=== PATIENT | male | born 1975 ===

== ENCOUNTER 2019-12-05 17:13 | Inpatient (IN) | payer OTHER ==
[2019-12-05] MEDS ORDERED: SODIUM CHLORIDE 0.9% 1000 ML IV SOLN IV ONE (20:16)
[2019-12-05] MEDS ORDERED: ACETAMINOPHEN 500 MG TAB PO ONE (20:35)
[2019-12-05] MEDS ORDERED: AZITHROMYCIN 500 MG in SODIUM CHLORIDE 0.9% 250ML 250 ML IV ONE (20:35)
[2019-12-05] MEDS ORDERED: cefTRIAXone/NS 2 GM/100 ML 2 GM/100 ML BAG IV ONE (20:35)
--- NOTE | 2019-12-05 20:39 | Emergency Department Report ---
HPI - General Chief Complaint: Dyspnea/Respdistress PUI?: Yes Time Seen by Provider: 12/05/19 20:15 - HPI HPI: Room 17 The patient is a 44-year-old male present with a chief complaint of shortness of breath. Patient states for 1 week he has felt short of breath. Patient states his symptoms worsened 4 days ago. Patient admits to an occasional cough that is nonproductive when he takes a deep breath in. Patient admits to subjective fever. Patient denies body aches. The patient states he thought he had the regular flu. The patient states he is not aware of having contact with a known COVID-19 patient ED Past Medical Hx - Past Medical History Previous Medical History?: No - Surgical History Past Surgical History?: No - Family History Family history: no significant - Social History Smoking Status: Never Smoker Substance Use Type: Alcohol (Occasional) ED Review of Systems ROS: Stated complaint: SOB Other details as noted in HPI Constitutional: fever Eyes: denies: eye pain ENT: denies: throat pain Respiratory: cough, shortness of breath Endocrine: no symptoms reported Gastrointestinal: denies: abdominal pain Genitourinary: denies: dysuria Musculoskeletal: denies: myalgia Neurological: denies: headache Physical Exam - Physical Exam Vital Signs: Vital Signs 12/05/19 12/05/19 18:39 20:14 Temperature 102.5 F H 102.7 F H Pulse Rate 114 H 107 H Respiratory 22 Rate Blood Pressure 150/80 Blood Pressure 123/82 [Right] O2 Sat by Pulse 93 90 Oximetry Physical Exam: GENERAL: The patient is well-developed well-nourished male lying on stretcher not appearing to be in acute distress. [] HEENT: Normocephalic. Atraumatic. Extraocular motions are intact. Patient has moist mucous membranes. NECK: Supple. Trachea midline CHEST/LUNGS: Diminished with crackles at right base. HEART/CARDIOVASCULAR: Regular. There is tachycardia. There is no gallop rub or murmur. ABDOMEN: Abdomen is soft, nontender. Patient has normal bowel sounds. There is no abdominal distention. SKIN: There is no rash. There is no edema. There is no diaphoresis. NEURO: The patient is awake, alert, and oriented. The patient is cooperative. The patient has normal speech MUSCULOSKELETAL: There is no evidence of acute injury. ED Course Vital Signs 12/05/19 12/05/19 18:39 20:14 Temperature 102.5 F H 102.7 F H Pulse Rate 114 H 107 H Respiratory 22 Rate Blood Pressure 150/80 Blood Pressure 123/82 [Right] O2 Sat by Pulse 93 90 Oximetry ED Medical Decision Making - Lab Data Result diagrams: 12/05/19 20:31 12/05/19 20:31 Laboratory Tests 12/05/19 12/05/19 12/05/19 20:31 20:31 20:31 WBC 14.2 H RBC 4.82 Hgb 13.8 Hct 41.4 MCV 86 MCH 29 MCHC 33 RDW 13.6 Plt Count 214 Seg Neutrophils % Stitcher Around D-Dimer Sodium 131 L Potassium 4.1 Chloride 96.1 L Carbon Dioxide 22 Anion Gap 17 BUN 6 L Creatinine 0.6 L Estimated GFR > 60 BUN/Creatinine Ratio 10 Glucose 126 H Lactic Acid 1.10 Calcium 9.4 Total Bilirubin 0.30 AST 74 H ALT 90 H Alkaline Phosphatase 83 Lactate Dehydrogenase C-Reactive Protein Total Protein 7.3 Albumin 3.4 L Albumin/Globulin Ratio 0.9 Urine Color Urine Turbidity Urine pH Ur Specific [place] Urine Protein Urine Glucose (UA) Urine Ketones Urine Blood Urine Nitrite Urine Bilirubin Urine Urobilinogen Ur Leukocyte Esterase Urine WBC (Auto) Urine RBC (Auto) Urine Mucus 12/05/19 12/05/19 12/05/19 20:31 20:31 20:58 WBC RBC Hgb Hct MCV MCH MCHC RDW Plt Count Seg Neutrophils % D-Dimer 295.04 H Sodium Potassium Chloride Carbon Dioxide Anion Gap BUN Creatinine Estimated GFR BUN/Creatinine Ratio Glucose 128 H Lactic Acid Calcium Total Bilirubin AST ALT Alkaline Phosphatase Lactate Dehydrogenase 408 H C-Reactive Protein 23.90 H Total Protein Albumin Albumin/Globulin Ratio Urine Color Yellow Urine Turbidity Clear Urine pH 8.0 H Ur Specific [place] 1.014 Urine Protein 30 mg/dl Urine Glucose (UA) Neg Urine Ketones Neg Urine Blood Neg Urine Nitrite Neg Urine Bilirubin Neg Urine Urobilinogen < 2.0 Ur Leukocyte Esterase Neg Urine WBC (Auto) 1.0 Urine RBC (Auto) 2.0 Urine Mucus Few - EKG Data -: EKG Interpreted by Nm EKG shows normal: sinus rhythm Rate: tachycardia (102 beats per) - EKG Data When compared to previous EKG there are: previous EKG unavailable Interpretation: nonspecific ST-T wave marimar (T wave inversion in lead III) - Radiology Data Radiology results: report reviewed (Chest x-ray), image reviewed (Chest x-ray) interpreted by me: Chest [id number] lower lobe infiltrates [facility] [address] [place] [address] XRay Report Signed Patient: NASIR SUERO MR#: [id number] : 1975 Acct:[id number] Age/Sex: 44 / M ADM Date: 12/05/19 Loc: 3A [id number]: KATERINE CHRISTIAN MD Ordering Physician: BRODIE OLVERA MD Date of Service: 12/05/19 Procedure(s): XR chest 1V ap Accession Number(s): [id number] cc: RBODIE OLVERA MD Fluoro Time In Minutes: CHEST 1 VIEW 9:05 PM INDICATION / CLINICAL INFORMATION: Shortness of breath and chest pain with deep inspiration for 5 days. Fever. COMPARISON: None available. FINDINGS: SUPPORT DEVICES: None. HEART / MEDIASTINUM: The heart size and pulmonary vasculature are normal. LUNGS / PLEURA: There is mild patchy groundglass opacity in the right lower lung, more prominent laterally. There may be mild disease in the left mid to lower lung laterally. No pleural effusion. No pneumothorax. ADDITIONAL FINDINGS: No significant additional findings. IMPRESSION: Mild patchy groundglass parenchymal disease, best seen in the right lower lung laterally. Atypical causes of pneumonia, including viral pneumonia, should be considered. Signer Name: Gulshan Flannery MD Signed: 12/05/2019 9:55 PM Workstation Name: [id number] Transcribed By: RT Dictated By: Gulshan Flannery MD Electronically Authenticated By: Gulshan Flannery MD Signed Date/Time: 12/05/192154 DD/ 53 TD/TT: - Differential Diagnosis COVID-19, pneumonia, bronchitis, Critical care attestation.: If time is entered above; I have spent that time in minutes in the direct care of this critically ill patient, excluding procedure time. ED Disposition Clinical Impression: Hypoxia, Bilateral pneumonia, Suspected COVID-19 virus infection Disposition: OP ADMIT IP TO THIS HOSP Is pt being admited?: Yes Does the pt Need Aspirin: Yes Condition: Fair Instructions: Bacterial Pneumonia (ED) Referrals: LISBETH BLAIR MD [Primary Care Provider] - 3-5 Days Time of Disposition: 21:16 (Hospitalist paged (Dr Christian))
[2019-12-05 21:01] LABS: Hematocrit 41.4 % (35.5-45.6); Hemoglobin 13.8 gm/dl (11.8-15.2); Mean Corpuscular HGB Conc 33 % (32-34); Mean Corpuscular Volume 86 fl (84-94); Platelet Count 214 K/mm3 (140-440); Red Blood Count 4.82 M/mm3 (3.65-5.03); Red Cell Distribution Width 13.6 % (13.2-15.2)
[2019-12-05 21:09] LABS: C-Reactive Protein 23.9 mg/dL (0.00-1.30)
[2019-12-05 21:09] LABS: Bilirubin,Urine NEG (Negative); Blood,Urine NEG (Negative); Color,Urine Yellow (Yellow); Mucus,Urine FEW /HPF; Urobilinogen,Urine < 2.0 mg/dL (<2.0)
[2019-12-05 21:10] LABS: Alanine Aminotransferase 90 units/L (7-56); Albumin 3.4 g/dL (3.9-5); BUN/Creatinine Ratio 10; Blood Urea Nitrogen 6 mg/dL (9-20); Calcium 9.4 mg/dL (8.4-10.2); Hemolysis Index 5
[2019-12-05] MEDS ORDERED: dexAMETHasone 4 MG/ML VIAL IV ONE (21:27)
[2019-12-05 21:32] LABS: Creatine Kinase MB < 1.0 ng/mL (0.0-4.0)
[2019-12-05 21:51] LABS: Basophils % (Manual) 0 % (0.0-1.8); Eosinophils % (Manual) 0 % (0.0-4.3); RBC Morphology Normal; Total Cells Counted 100
--- NOTE | 2019-12-05 22:00 | XRay Report ---
CHEST 1 VIEW 9:05 PM INDICATION / CLINICAL INFORMATION: Shortness of breath and chest pain with deep inspiration for 5 days. Fever. COMPARISON: None available. FINDINGS: SUPPORT DEVICES: None. HEART / MEDIASTINUM: The heart size and pulmonary vasculature are normal. LUNGS / PLEURA: There is mild patchy groundglass opacity in the right lower lung, more prominent late rally. There may be mild disease in the left mid to lower lung laterally. No pleural effusion. No pne umothorax. ADDITIONAL FINDINGS: No significant additional findings. IMPRESSION: Mild patchy groundglass parenchymal disease, best seen in the right lower lung laterally. Atypical causes of pneumonia, including viral pneumonia, should be considered. Signer Name: Gulshan Flannery MD Signed: 12/05/2019 9:55 PM Workstation Name: [id number]
[2019-12-05] MEDS ORDERED: dexAMETHasone 4 MG/ML VIAL ONE (22:16)
[2019-12-05] MEDS ORDERED: ONDANSETRON 4 MG/2 ML INJ IV PRN (23:08)
[2019-12-05] MEDS ORDERED: ACETAMINOPHEN 325 MG TAB PO PRN (23:08)
[2019-12-05] MEDS ORDERED: MAGNESIUM HYDROXIDE (MOM) ORAL LIQD UDC PO PRN (23:08)
--- NOTE | 2019-12-05 23:16 | History and Physical Report ---
History of Present Illness Date of examination: 12/05/19 Date of admission: 12/05/19 21:36 Chief complaint: Cough Shortness of breath Fever History of present illness: 44-year-old male with no significant past medical history presenting to the emergency room today complaining of shortness of breath which has been ongoing for about a week. Patient has also had a cough and generalized body aches and pain. Patient states his symptoms has worsened over the past few days. He has had some low-grade fever at home. He denies any chest pain, no nausea vomiting, no abdominal pain, no diarrhea. Patient denies any sick contacts and no recent travel. He denies any contact with anyone with COVID-19. Patient was slightly hypoxic upon arrival in the emergency room. Work-up in the emergency room reveals bilateral infiltrates in the lower lobes on chest x-ray. He was started on empiric IV antibiotics and also placed on isolation precautions to rule out COVID-19. Past History Past Medical History: No medical history Past Surgical History: No surgical history Social history: alcohol abuse (Drinks alcohol occasionally) Family history: no significant family history Medications and Allergies Allergies Allergy/AdvReac Type Severity Reaction Status Date / Time No Known Allergies Allergy Verified 12/05/19 23:18 Active Meds: Active Medications Acetaminophen (Tylenol) 650 mg PO Q4H PRN PRN Reason: Pain MILD(1-3)/Fever >100.5/WILSON Heparin Sodium (Porcine) (Heparin) 5,000 unit SUB-Q Q8HR IVÁN Ceftriaxone Sodium (Rocephin/Ns 2 Gm/100 Ml) 2 gm in 100 mls @ 200 mls/hr IV Q 24HR IVÁN; Protocol Azithromycin 500 mg/ Sodium (Chloride) 250 mls @ 250 mls/hr IV Q24HR IVÁN; Protocol Magnesium Hydroxide (Milk Of Magnesia) 30 ml PO Q4H PRN PRN Reason: Constipation Ondansetron HCl (Zofran) 4 mg IV Q8H PRN PRN Reason: Nausea And Vomiting Sodium Chloride (Sodium Chloride Flush Syringe 10 Ml) 10 ml IV BID IVÁN Sodium Chloride (Sodium Chloride Flush Syringe 10 Ml) 10 ml IV PRN PRN PRN Reason: LINE FLUSH Review of Systems Constitutional: fever, malaise, no chills Ears, nose, mouth and throat: no nasal congestion, no sore throat Cardiovascular: no chest pain, no palpitations Gastrointestinal: no abdominal pain, no nausea, no vomiting, no diarrhea Genitourinary Male: no dysuria, no hematuria, no flank pain Musculoskeletal: no neck pain, no low back pain Integumentary: no rash, no pruritis Neurological: no headaches, no confusion Exam - Constitutional Vitals: Temp Pulse Resp BP Pulse Ox 102.7 F H 100 H 20 123/82 97 12/05/19 20:14 12/05/19 20:45 12/05/19 20:56 12/05/19 20:45 12/05/19 20:45 General appearance: Present: no acute distress, well-nourished - EENT Eyes: Present: PERRL, EOM intact. Absent: scleral icterus ENT: hearing intact, clear oral mucosa, dentition normal - Neck Neck: Present: supple, normal ROM - Respiratory Respiratory effort: normal Respiratory: bilateral: diminished - Cardiovascular Rhythm: regular Heart Sounds: Present: S1 & S2. Absent: gallop, systolic murmur, diastolic m urmur, rub - Extremities Extremities: no ischemia, pulses intact, pulses symmetrical, No edema, Full ROM Peripheral Pulses: within normal limits - Abdominal General gastrointestinal: Present: soft, non-tender, non-distended, normal bowel sounds. Absent: mass - Integumentary Integumentary: Present: clear, warm, dry - Musculoskeletal Musculoskeletal: strength equal bilaterally - Psychiatric Psychiatric: appropriate mood/affect, intact judgment & insight, memory intact, cooperative - Neurologic Neurologic: CNII-XII intact, no focal deficits, moves all extremities HEART Score - HEART Score Troponin: Troponin T < 0.010 ng/mL (0.00-0.029) 12/05/19 20:31 Results - Labs CBC & Chem 7: 12/06/19 04:53 12/06/19 04:53 Labs: Abnormal lab results 12/05/19 12/05/19 12/05/19 Range/Units 20:31 20:31 20:31 WBC 14.2 H (4.5-11.0) K/mm3 Seg Neuts % (Manual) 89.0 H (40.0-70.0) % Lymphocytes % (Manual) 7.0 L (13.4-35.0) % Seg Neutrophils # Man 12.6 H (1.8-7.7) K/mm3 Lymphocytes # (Manual) 1.0 L (1.2-5.4) K/mm3 D-Dimer 295.04 H (0-234) ng/mlDDU Sodium 131 L (137-145) mmol/L Chloride 96.1 L (98-107) mmol/L BUN 6 L (9-20) mg/dL Creatinine 0.6 L (0.8-1.5) mg/dL Glucose 126 H (75-100) mg/dL AST 74 H (5-40) units/L ALT 90 H (7-56) units/L Lactate Dehydrogenase (91-180) units/L C-Reactive Protein (0.00-1.30) mg/dL Albumin 3.4 L (3.9-5) g/dL Urine pH (5.0-7.0) 12/05/19 12/05/19 Range/Units 20:31 20:58 WBC (4.5-11.0) K/mm3 Seg Neuts % (Manual) (40.0-70.0) % Lymphocytes % (Manual) (13.4-35.0) % Seg Neutrophils # Man (1.8-7.7) K/mm3 Lymphocytes # (Manual) (1.2-5.4) K/mm3 D-Dimer (0-234) ng/mlDDU Sodium (137-145) mmol/L Chloride (98-107) mmol/L BUN (9-20) mg/dL Creatinine (0.8-1.5) mg/dL Glucose 128 H (75-100) mg/dL AST (5-40) units/L ALT (7-56) units/L Lactate Dehydrogenase 408 H (91-180) units/L C-Reactive Protein 23.90 H (0.00-1.30) mg/dL Albumin (3.9-5) g/dL Urine pH 8.0 H (5.0-7.0) Assessment and Plan - Patient Problems (1) Bilateral pneumonia Current Visit: Yes Status: Acute Plan to address problem: Patient placed on empiric IV antibiotics. We also place patient on isolation precautions to rule out COVID-19. [address] consult to infectious disease for evaluation and recommendation. We will await results of COVID testing. (2) Hypoxia Current Visit: Yes Status: Acute Plan to address problem: Due to underlying pneumonia. We will keep O2 saturation greater or equal to 9 4%. (3) Suspected COVID-19 virus infection Current Visit: Yes Status: Acute Plan to address problem: Patient placed on IV steroid. She has also been placed on isolation precautions. We will await infectious disease input. (4) DVT prophylaxis Current Visit: Yes Status: Acute Plan to address problem: Patient placed on subcutaneous Lovenox. (5) Full code status Current Visit: Yes Status: Acute
[2019-12-06] MEDS: HEPARIN 5,000 UNIT/1 ML VIAL SUB-Q SCH ×3 (05:32→23:27)
[2019-12-06 05:34] LABS: Hemoglobin 13.7 gm/dl (11.8-15.2); Mean Corpuscular HGB Conc 33 % (32-34); Mean Corpuscular Volume 86 fl (84-94); Platelet Count 235 K/mm3 (140-440); Red Blood Count 4.77 M/mm3 (3.65-5.03); Red Cell Distribution Width 13.8 % (13.2-15.2)
[2019-12-06 06:03] LABS: BUN/Creatinine Ratio 13; Blood Urea Nitrogen 8 mg/dL (9-20); Calcium 9.7 mg/dL (8.4-10.2); Hemolysis Index 2
[2019-12-06] MEDS ORDERED: dexAMETHasone 4 MG/ML VIAL IV SCH (10:00)
[2019-12-06] MEDS ORDERED: AZITHROMYCIN 500 MG in SODIUM CHLORIDE 0.9% 250ML 250 ML IV SCH (10:00)
[2019-12-06] MEDS: DEXAMETHASONE 4 MG TAB PO SCH (10:18)
[2019-12-06] MEDS: cefTRIAXone/NS 2 GM/100 ML 2 GM/100 ML BAG IV SCH (10:18)
--- NOTE | 2019-12-06 10:43 | Event Note ---
Date: 12/06/19 COVID test pending. OK to continue steroids for now. If he develops worsening hypoxia, would add 5 days of Remdesivir.
[2019-12-06 13:15] LABS: Band Neutrophils # (Manual) 1.2 K/mm3; Basophils % (Manual) 0 % (0.0-1.8); Eosinophils % (Manual) 0 % (0.0-4.3); Platelet Estimate Consistent w Auto; RBC Morphology Normal; Total Cells Counted 100
--- NOTE | 2019-12-06 14:28 | Progress Note ---
Subjective Date of service: 12/06/19 Interval history: 44-year-old male with no significant past medical history presenting to the emergency room today complaining of shortness of breath which has been ongoing for about a week. Patient has also had a cough and generalized body aches and pain. Patient states his symptoms has worsened over the past few days. He has had some low-grade fever at home. He denies any chest pain, no nausea vomiting, no abdominal pain, no diarrhea. Patient denies any sick contacts and no recent travel. He denies any contact with anyone with COVID-19. Patient was slightly hypoxic upon arrival in the emergency room. Work-up in the emergency room reveals bilateral infiltrates in the lower lobes on chest x-ray. He was started on empiric IV antibiotics and also placed on isolation precautions to rule out COVID-19. 12/05 Patient is awake alert and oriented Complaints of shortness of breath with minimal effort Complaints of cough with deep breath but otherwise denies any significant cough He denies any fever or chills Lab results reviewed COVID-19 test results pending Assessment and plan Bilateral pneumonia Continue empiric IV antibiotics with Rocephin and azithromycin Chest x-ray reviewed Acute hypoxic respiratory failure Continue oxygen via nasal cannula O2 sat 97% on oxygen Suspected COVID-19 pneumonia Continue isolation precautions COVID-19 test results are pending All inflammatory markers are high Continue empiric Decadron Brief ID note reviewed Start on Remdesivir if cover test is positive Leukocytosis Continue IV antibiotics Monitor CBC Elevated LFTs Likely secondary to COVID 19 virus Hyponatremia Improved Hyperglycemia Likely secondary to IV Decadron Monitor Objective - Constitutional Vitals: Vital Signs - 12hr 12/06/19 12/06/19 02:49 05:04 Temperature 98.7 F 98.2 F Pulse Rate 71 Respiratory 16 16 Rate Blood Pressure 112/71 Blood Pressure 116/75 [Right] O2 Sat by Pulse 89 94 Oximetry General appearance: Present: no acute distress - EENT Eyes: PERRL, EOM intact ENT: hearing intact, clear oral mucosa - Neck Neck: supple, normal ROM - Respiratory Respiratory effort: normal Respiratory: bilateral: CTA - Cardiovascular Rhythm: regular Heart Sounds: Present: S1 & S2 Extremities: No edema - Gastrointestinal General gastrointestinal: Present: soft, non-tender Rectal Exam: deferred - Genitourinary Male genitourinary: deferred - Integumentary Integumentary: clear - Musculoskeletal Musculoskeletal: strength equal bilaterally - Neurologic Neurologic: no focal deficits - Psychiatric Psychiatric: appropriate mood/affect - Labs CBC & Chem 7: 12/06/19 04:53 12/06/19 04:53 Labs: Abnormal lab results 12/05/19 12/05/19 12/05/19 Range/Units 20:31 20:31 20:31 WBC 14.2 H (4.5-11.0) K/mm3 Seg Neuts % (Manual) 89.0 H (40.0-70.0) % Lymphocytes % (Manual) 7.0 L (13.4-35.0) % Seg Neutrophils # Man 12.6 H (1.8-7.7) K/mm3 Lymphocytes # (Manual) 1.0 L (1.2-5.4) K/mm3 D-Dimer 295.04 H (0-234) ng/mlDDU Sodium 131 L (137-145) mmol/L Chloride 96.1 L (98-107) mmol/L BUN 6 L (9-20) mg/dL Creatinine 0.6 L (0.8-1.5) mg/dL Glucose 126 H (75-100) mg/dL Ferritin (13.0-400.0) ng/mL AST 74 H (5-40) units/L ALT 90 H (7-56) units/L Lactate Dehydrogenase (91-180) units/L C-Reactive Protein (0.00-1.30) mg/dL Albumin 3.4 L (3.9-5) g/dL Urine pH (5.0-7.0) 12/05/19 12/05/19 12/05/19 Range/Units 20:31 20:31 20:58 WBC (4.5-11.0) K/mm3 Seg Neuts % (Manual) (40.0-70.0) % Lymphocytes % (Manual) (13.4-35.0) % Seg Neutrophils # Man (1.8-7.7) K/mm3 Lymphocytes # (Manual) (1.2-5.4) K/mm3 D-Dimer (0-234) ng/mlDDU Sodium (137-145) mmol/L Chloride (98-107) mmol/L BUN (9-20) mg/dL Creatinine (0.8-1.5) mg/dL Glucose 128 H (75-100) mg/dL Ferritin 887.8 H (13.0-400.0) ng/mL AST (5-40) units/L ALT (7-56) units/L Lactate Dehydrogenase 408 H (91-180) units/L C-Reactive Protein 23.90 H (0.00-1.30) mg/dL Albumin (3.9-5) g/dL Urine pH 8.0 H (5.0-7.0) 12/06/19 12/06/19 Range/Units 04:53 04:53 WBC 13.8 H (4.5-11.0) K/mm3 Seg Neuts % (Manual) 84.0 H (40.0-70.0) % Lymphocytes % (Manual) 5.0 L (13.4-35.0) % Seg Neutrophils # Man 11.6 H (1.8-7.7) K/mm3 Lymphocytes # (Manual) 0.7 L (1.2-5.4) K/mm3 D-Dimer (0-234) ng/mlDDU Sodium (137-145) mmol/L Chloride (98-107) mmol/L BUN 8 L (9-20) mg/dL Creatinine 0.6 L (0.8-1.5) mg/dL Glucose 160 H (75-100) mg/dL Ferritin (13.0-400.0) ng/mL AST (5-40) units/L ALT (7-56) units/L Lactate Dehydrogenase (91-180) units/L C-Reactive Protein (0.00-1.30) mg/dL Albumin (3.9-5) g/dL Urine pH (5.0-7.0) HEART Score - HEART Score Troponin: Troponin T < 0.010 ng/mL (0.00-0.029) 12/05/19 20:31
[2019-12-06] MEDS ORDERED: REMDESIVIR 200 MG in SODIUM CHLORIDE 0.9% 250ML 250 ML IV ONE (17:00)
[2019-12-06] MEDS: SODIUM CHLORIDE 0.9% 50 ML IV SCH ×2 (17:49→23:28)
[2019-12-07] MEDS: HEPARIN 5,000 UNIT/1 ML VIAL SUB-Q SCH ×3 (05:39→21:22)
[2019-12-07 06:33] LABS: Basophils % (Auto) 0.1 % (0.0-1.8); Hematocrit 40.9 % (35.5-45.6); Hemoglobin 13.3 gm/dl (11.8-15.2); Lymphocytes # (Auto) 0.8 K/mm3 (1.2-5.4); Lymphocytes % (Auto) 5.6 % (13.4-35.0); Mean Corpuscular HGB Conc 33 % (32-34); Mean Corpuscular Volume 86 fl (84-94); Monocytes # (Auto) 0.7 K/mm3 (0.0-0.8); Monocytes % (Auto) 4.9 % (0.0-7.3); Platelet Count 326 K/mm3 (140-440); Red Blood Count 4.78 M/mm3 (3.65-5.03)
[2019-12-07 06:41] LABS: Alanine Aminotransferase 135 units/L (7-56); Albumin 3.4 g/dL (3.9-5); BUN/Creatinine Ratio 26; Blood Urea Nitrogen 13 mg/dL (9-20); Calcium 9.8 mg/dL (8.4-10.2); Hemolysis Index 0
[2019-12-07] MEDS: DEXAMETHASONE 4 MG TAB PO SCH (09:33)
[2019-12-07] MEDS: cefTRIAXone/NS 2 GM/100 ML 2 GM/100 ML BAG IV SCH (09:33)
[2019-12-07] MEDS: AZITHROMYCIN 250 MG TAB PO SCH (09:33)
--- NOTE | 2019-12-07 14:27 | Progress Note ---
Subjective Date of service: 12/07/19 Interval history: 44-year-old male with no significant past medical history presenting to the emergency room today complaining of shortness of breath which has been ongoing for about a week. Patient has also had a cough and generalized body aches and pain. Patient states his symptoms has worsened over the past few days. He has had some low-grade fever at home. He denies any chest pain, no nausea vomiting, no abdominal pain, no diarrhea. Patient denies any sick contacts and no recent travel. He denies any contact with anyone with COVID-19. Patient was slightly hypoxic upon arrival in the emergency room. Work-up in the emergency room reveals bilateral infiltrates in the lower lobes on chest x-ray. He was started on empiric IV antibiotics and also placed on isolation precautions to rule out COVID-19. 12/05 Patient is awake alert and oriented Complaints of shortness of breath with minimal effort Complains of dry cough He denies any fever or chills Lab results reviewed COVID-19 test is positive 12/06 Patient is awake and alert He is moderately dyspneic by taking 1 or 2 steps and gets hypoxic with minimal effort He is on 6 L oxygen via nasal cannula Lab results reviewed Discussed with ID Dr. Keller over the phone Assessment and plan Bilateral pneumonia Chest x-ray reviewed Procalcitonin in the normal range Discontinue IV antibiotics Acute hypoxic respiratory failure Continue oxygen via nasal cannula Patient is on 6 L oxygen via nasal cannula He gets severely dyspneic and hypoxic with minimal effort Discussed with ID Dr. Keller over the phone We will administer 1 dose of Actemra at 8 mg/kg Will request pulmonary consult COVID-19 pneumonia Continue isolation precautions All inflammatory markers reviewed and are trending up Continue empiric Decadron Brief ID note reviewed Started on Remdesivir Leukocytosis Likely reactive Monitor CBC Elevated LFTs Likely secondary to COVID 19 virus Hyponatremia Improved Hyperglycemia Likely secondary to IV Decadron Monitor Objective - Constitutional Vitals: Vital Signs - 12hr 12/07/19 12/07/19 06:08 11:26 Temperature 98.0 F 97.7 F Pulse Rate 80 76 Respiratory 16 24 Rate Blood Pressure 119/75 121/77 O2 Sat by Pulse 92 96 Oximetry General appearance: Present: mild distress, well-nourished - EENT Eyes: PERRL, EOM intact ENT: hearing intact, clear oral mucosa - Neck Neck: supple, normal ROM, no masses or JVD - Respiratory Respiratory effort: other (Mild to moderate shortness of breath) Respiratory: bilateral: CTA - Cardiovascular Rhythm: regular Heart Sounds: Present: S1 & S2 Extremities: No edema - Gastrointestinal General gastrointestinal: Present: soft, non-tender Rectal Exam: deferred - Genitourinary Male genitourinary: deferred - Integumentary Integumentary: clear - Musculoskeletal Musculoskeletal: strength equal bilaterally - Neurologic Neurologic: no focal deficits - Labs CBC & Chem 7: 12/07/19 05:08 12/07/19 05:08 Labs: Abnormal lab results 12/05/19 12/07/19 12/07/19 Range/Units Unknown 05:08 05:08 WBC 14.7 H (4.5-11.0) K/mm3 Lymph % (Auto) 5.6 L (13.4-35.0) % Lymph # 0.8 L (1.2-5.4) K/mm3 Seg Neutrophils % 89.4 H (40.0-70.0) % Seg Neutrophils # 13.1 H (1.8-7.7) K/mm3 D-Dimer 373.63 H (0-234) ng/mlDDU Creatinine (0.8-1.5) mg/dL Glucose (75-100) mg/dL Ferritin (13.0-400.0) ng/mL AST (5-40) units/L ALT (7-56) units/L Lactate Dehydrogenase (91-180) units/L Albumin (3.9-5) g/dL Coronavirus (PCR) Positive A (Negative) 12/07/19 12/07/19 Range/Units 05:08 05:08 WBC (4.5-11.0) K/mm3 Lymph % (Auto) (13.4-35.0) % Lymph # (1.2-5.4) K/mm3 Seg Neutrophils % (40.0-70.0) % Seg Neutrophils # (1.8-7.7) K/mm3 D-Dimer (0-234) ng/mlDDU Creatinine 0.5 L (0.8-1.5) mg/dL Glucose 145 H (75-100) mg/dL Ferritin 1223.0 H (13.0-400.0) ng/mL AST 115 H (5-40) units/L ALT 135 H (7-56) units/L Lactate Dehydrogenase 452 H (91-180) units/L Albumin 3.4 L (3.9-5) g/dL Coronavirus (PCR) (Negative) HEART Score - HEART Score Troponin: Troponin T < 0.010 ng/mL (0.00-0.029) 12/05/19 20:31
--- NOTE | 2019-12-07 15:22 | Consultation ---
History of Present Illness Consult date: 12/07/19 Requesting physician: DANIELITO LARA Reason for consult: hypoxemia History of present illness: 44 y/o male admitted with acute respiratory failure secondary to COVID 19. Past History Past Medical History: No medical history Past Surgical History: No surgical history Social history: alcohol abuse (Drinks alcohol occasionally) Family history: no significant family history Medications and Allergies Allergies Allergy/AdvReac Type Severity Reaction Status Date / Time No Known Allergies Allergy Verified 12/05/19 23:18 Active Meds: Active Medications Acetaminophen (Tylenol) 650 mg PO Q4H PRN PRN Reason: Pain MILD(1-3)/Fever >100.5/[place] Azithromycin (Zithromax) 500 mg PO QDAY [facility] Stop: 12/09/19 10:01 Last Admin: 12/07/19 09:33 Dose: 500 mg Documented by: Dexamethasone (Decadron) 6 mg PO DAILY [facility] Last Admin: 12/07/19 09:33 Dose: 6 mg Documented by: Heparin Sodium (Porcine) (Heparin) 5,000 unit SUB-Q Q8HR [facility] Last Admin: 12/07/19 14:06 Dose: 5,000 unit Documented by: Ceftriaxone Sodium (Rocephin/Ns 2 Gm/100 Ml) 2 gm in 100 mls @ 200 mls/hr IV Q24HR [facility]; Protocol Last Admin: 12/07/19 09:33 Dose: 200 mls/hr Documented by: REMDESIVIR 100 mg/ Sodium (Chloride) 250 mls @ 500 mls/hr IV Q24HR@2100 IVÁN Stop: 12/10/19 21:29 Sodium Chloride (Nacl 0.9%) 50 mls @ 200 mls/hr IV 2100 [facility] Stop: 12/09/19 21:14 Last Admin: 12/06/19 23:28 Dose: Not Given Documented by: TOCILIZUMAB 700 mg/ Sodium (Chloride) 135 mls @ 120 mls/hr IV ONCE ONE Stop: 12/07/19 15:19 Magnesium Hydroxide (Milk Of Magnesia) 30 ml PO Q4H PRN PRN Reason: Constipation Ondansetron HCl (Zofran) 4 mg IV Q8H PRN PRN Reason: Nausea And Vomiting Sodium Chloride (Sodium Chloride Flush Syringe 10 Ml) 10 ml IV BID [facility] Last Admin: 12/07/19 09:36 Dose: 10 ml Documented by: Sodium Chloride (Sodium Chloride Flush Syringe 10 Ml) 10 ml IV PRN PRN PRN Reason: LINE FLUSH Physical Examination Vital signs: Vital Signs Temp Pulse BP Pulse Ox 102.5 F H 114 H 150/80 93 12/05/19 18:39 12/05/19 18:39 12/05/19 18:39 12/05/19 18:39 Patient not examined secondary to limited PPE in this COVID pandemic Results - Laboratory Findings CBC and BMP: 12/07/19 05:08 12/07/19 05:08 PT/INR, D-dimer PT 13.0 Sec. (12.2-14.9) 12/06/19 04:53 INR 1.00 (0.87-1.13) 12/06/19 04:53 D-Dimer 373.63 ng/mlDDU (0-234) H 12/07/19 05:08 Abnormal lab findings: Abnormal Labs 12/05/19 12/05/19 12/05/19 20:31 20:31 20:31 WBC 14.2 H Lymph % (Auto) Lymph # Seg Neutrophils % Seg Neuts % (Manual) 89.0 H Lymphocytes % (Manual) 7.0 L Seg Neutrophils # Seg Neutrophils # Man 12.6 H Lymphocytes # (Manual) 1.0 L D-Dimer 295.04 H Sodium 131 L Chloride 96.1 L BUN 6 L Creatinine 0.6 L Glucose 126 H Ferritin AST 74 H ALT 90 H Lactate Dehydrogenase C-Reactive Protein Albumin 3.4 L Urine pH Coronavirus (PCR) 12/05/19 12/05/19 12/05/19 20:31 20:31 20:58 WBC Lymph % (Auto) Lymph # Seg Neutrophils % Seg Neuts % (Manual) Lymphocytes % (Manual) Seg Neutrophils # Seg Neutrophils # Man Lymphocytes # (Manual) D-Dimer Sodium Chloride BUN Creatinine Glucose 128 H Ferritin 887.8 H AST ALT Lactate Dehydrogenase 408 H C-Reactive Protein 23.90 H Albumin Urine pH 8.0 H Coronavirus (PCR) 12/05/19 12/06/19 12/06/19 Unknown 04:53 04:53 WBC 13.8 H Lymph % (Auto) Lymph # Seg Neutrophils % Seg Neuts % (Manual) 84.0 H Lymphocytes % (Manual) 5.0 L Seg Neutrophils # Seg Neutrophils # Man 11.6 H Lymphocytes # (Manual) 0.7 L D-Dimer Sodium Chloride BUN 8 L Creatinine 0.6 L Glucose 160 H Ferritin AST ALT Lactate Dehydrogenase C-Reactive Protein Albumin Urine pH Coronavirus (PCR) Positive A 12/07/19 12/07/19 12/07/19 05:08 05:08 05:08 WBC 14.7 H Lymph % (Auto) 5.6 L Lymph # 0.8 L Seg Neutrophils % 89.4 H Seg Neuts % (Manual) Lymphocytes % (Manual) Seg Neutrophils # 13.1 H Seg Neutrophils # Man Lymphocytes # (Manual) D-Dimer 373.63 H Sodium Chloride BUN Creatinine Glucose Ferritin 1223.0 H AST ALT Lactate Dehydrogenase C-Reactive Protein Albumin Urine pH Coronavirus (PCR) 12/07/19 05:08 WBC Lymph % (Auto) Lymph # Seg Neutrophils % Seg Neuts % (Manual) Lymphocytes % (Manual) Seg Neutrophils # Seg Neutrophils # Man Lymphocytes # (Manual) D-Dimer Sodium Chloride BUN Creatinine 0.5 L Glucose 145 H Ferritin AST 115 H ALT 135 H Lactate Dehydrogenase 452 H C-Reactive Protein Albumin 3.4 L Urine pH Coronavirus (PCR) - Diagnostic Findings Chest x-ray: image reviewed (possible right mid lung lateral infiltrate with cardiomegaly. Otherwise clear) Assessment and Plan 44 y/o male with acute respiratory failure secondary to COVID 19 1. Prone patient as often as possible during the day and sleep prone at night 2. Continue IV steroids 3. Based on ID recs, should get Remdesivir given positive COVID state. Will defer to them on need of actemra as well 4. Wean FiO2 for sats >88%, currently on 2 liters NC 5. Please do not give any additional IVF's unless related to therapy like piggybacks for Remdesivir Will continue to follow along with you.
[2019-12-07] MEDS ORDERED: TOCILIZUMAB 400 MG in SODIUM CHLORIDE 0.9% 100 ML IV ONE (16:00)
[2019-12-07] MEDS ORDERED: TOCILIZUMAB 600 MG in SODIUM CHLORIDE 0.9% 100 ML IV ONE (17:00)
[2019-12-07] MEDS: REMDESIVIR 100 MG in SODIUM CHLORIDE 0.9% 250ML 250 ML IV SCH (21:22)
[2019-12-07] MEDS: SODIUM CHLORIDE 0.9% 50 ML IV SCH (21:22)
[2019-12-08] MEDS: HEPARIN 5,000 UNIT/1 ML VIAL SUB-Q SCH ×3 (05:27→22:54)
[2019-12-08] MEDS: cefTRIAXone/NS 2 GM/100 ML 2 GM/100 ML BAG IV SCH (11:24)
[2019-12-08] MEDS: AZITHROMYCIN 250 MG TAB PO SCH (11:25)
[2019-12-08] MEDS: DEXAMETHASONE 4 MG TAB PO SCH (12:27)
--- NOTE | 2019-12-08 13:01 | Progress Note ---
Subjective Date of service: 12/08/19 Interval history: 44-year-old male with no significant past medical history presenting to the emergency room today complaining of shortness of breath which has been ongoing for about a week. Patient has also had a cough and generalized body aches and pain. Patient states his symptoms has worsened over the past few days. He has had some low-grade fever at home. He denies any chest pain, no nausea vomiting, no abdominal pain, no diarrhea. Patient denies any sick contacts and no recent travel. He denies any contact with anyone with COVID-19. Patient was slightly hypoxic upon arrival in the emergency room. Work-up in the emergency room reveals bilateral infiltrates in the lower lobes on chest x-ray. He was started on empiric IV antibiotics and also placed on isolation precautions to rule out COVID-19. 12/05 Patient is awake alert and oriented Complaints of shortness of breath with minimal effort Complains of dry cough He denies any fever or chills Lab results reviewed COVID-19 test is positive 12/06 Patient is awake and alert He is moderately dyspneic by taking 1 or 2 steps and gets hypoxic with minimal effort He is on 6 L oxygen via nasal cannula Lab results reviewed Discussed with ID Dr. Keller over the phone 12/07 Patient is alert and oriented and feels better at rest but gets short of breath and hypoxic with mild effort He denies any cough, fever, chills, chest pain or abdominal pain He is now on 8 L oxygen via nasal cannula Lab results reviewed Assessment and plan Bilateral pneumonia Chest x-ray reviewed Procalcitonin in the normal range Discontinue IV antibiotics Acute hypoxic respiratory failure Continue oxygen via nasal cannula Patient is on 8 L oxygen via nasal cannula He gets severely dyspneic and hypoxic with minimal effort Discussed with ID Dr. Keller over the phone Status post 1 dose of Actemra at 8 mg/kg pulmonary consult note reviewed COVID-19 pneumonia Continue isolation precautions All inflammatory markers reviewed and are trending up Continue Decadron Brief ID note reviewed Started on Remdesivir Leukocytosis Likely reactive Monitor CBC Pro calcitonin is normal Elevated LFTs Likely secondary to COVID 19 virus Hyponatremia Improved Hyperglycemia Likely secondary to IV Decadron Monitor Objective - Constitutional Vitals: Vital Signs - 12hr 12/08/19 06:52 Temperature 99.0 F Pulse Rate 67 Respiratory 18 Rate Blood Pressure 137/86 O2 Sat by Pulse 93 Oximetry General appearance: Present: no acute distress, well-nourished - EENT Eyes: PERRL, EOM intact ENT: hearing intact, clear oral mucosa - Neck Neck: supple, normal ROM - Respiratory Respiratory effort: normal Respiratory: bilateral: CTA - Cardiovascular Rhythm: regular Heart Sounds: Present: S1 & S2 Extremities: No edema - Gastrointestinal General gastrointestinal: Present: soft, non-tender Rectal Exam: deferred - Genitourinary Male genitourinary: deferred - Integumentary Integumentary: clear - Musculoskeletal Musculoskeletal: strength equal bilaterally - Neurologic Neurologic: no focal deficits - Labs CBC & Chem 7: 12/07/19 05:08 12/07/19 05:08 HEART Score - HEART Score Troponin: Troponin T < 0.010 ng/mL (0.00-0.029) 12/05/19 20:31
--- NOTE | 2019-12-08 13:04 | Progress Note ---
Assessment and Plan 44 y/o male with acute respiratory failure secondary to COVID 19 1. Prone patient as often as possible during the day and sleep prone at night 2. Continue steroids, day of 3. On Remdesivir, got Actemra yesterday. 4. Wean FiO2 for sats >88%, currently on 2 liters NC 5. Please do not give any additional IVF's unless related to therapy like piggybacks for Remdesivir Will continue to follow along with you. Subjective Date of service: 12/08/19 Interval history: No acute events. Patient remains on 2 liters. Last sat documented at 93 in the chart under vitals. No RT notes. Objective Vital Signs - 12hr 12/08/19 06:52 Temperature 99.0 F Pulse Rate 67 Respiratory 18 Rate Blood Pressure 137/86 O2 Sat by Pulse 93 Oximetry CBC and BMP: 12/07/19 05:08 12/07/19 05:08 ABG, PT/INR, D-dimer: PT/INR, D-dimer PT 13.0 Sec. (12.2-14.9) 12/06/19 04:53 INR 1.00 (0.87-1.13) 12/06/19 04:53 D-Dimer 373.63 ng/mlDDU (0-234) H 12/07/19 05:08 Abnormal lab findings: Abnormal Labs 12/05/19 12/05/19 12/05/19 20:31 20:31 20:31 WBC 14.2 H Lymph % (Auto) Lymph # Seg Neutrophils % Seg Neuts % (Manual) 89.0 H Lymphocytes % (Manual) 7.0 L Seg Neutrophils # Seg Neutrophils # Man 12.6 H Lymphocytes # (Manual) 1.0 L D-Dimer 295.04 H Sodium 131 L Chloride 96.1 L BUN 6 L Creatinine 0.6 L Glucose 126 H Ferritin AST 74 H ALT 90 H Lactate Dehydrogenase C-Reactive Protein Albumin 3.4 L Urine pH Coronavirus (PCR) 12/05/19 12/05/19 12/05/19 20:31 20:31 20:58 WBC Lymph % (Auto) Lymph # Seg Neutrophils % Seg Neuts % (Manual) Lymphocytes % (Manual) Seg Neutrophils # Seg Neutrophils # Man Lymphocytes # (Manual) D-Dimer Sodium Chloride BUN Creatinine Glucose 128 H Ferritin 887.8 H AST ALT Lactate Dehydrogenase 408 H C-Reactive Protein 23.90 H Albumin Urine pH 8.0 H Coronavirus (PCR) 12/05/19 12/06/19 12/06/19 Unknown 04:53 04:53 WBC 13.8 H Lymph % (Auto) Lymph # Seg Neutrophils % Seg Neuts % (Manual) 84.0 H Lymphocytes % (Manual) 5.0 L Seg Neutrophils # Seg Neutrophils # Man 11.6 H Lymphocytes # (Manual) 0.7 L D-Dimer Sodium Chloride BUN 8 L Creatinine 0.6 L Glucose 160 H Ferritin AST ALT Lactate Dehydrogenase C-Reactive Protein Albumin Urine pH Coronavirus (PCR) Positive A 12/07/19 12/07/19 12/07/19 05:08 05:08 05:08 WBC 14.7 H Lymph % (Auto) 5.6 L Lymph # 0.8 L Seg Neutrophils % 89.4 H Seg Neuts % (Manual) Lymphocytes % (Manual) Seg Neutrophils # 13.1 H Seg Neutrophils # Man Lymphocytes # (Manual) D-Dimer 373.63 H Sodium Chloride BUN Creatinine Glucose Ferritin 1223.0 H AST ALT Lactate Dehydrogenase C-Reactive Protein Albumin Urine pH Coronavirus (PCR) 12/07/19 05:08 WBC Lymph % (Auto) Lymph # Seg Neutrophils % Seg Neuts % (Manual) Lymphocytes % (Manual) Seg Neutrophils # Seg Neutrophils # Man Lymphocytes # (Manual) D-Dimer Sodium Chloride BUN Creatinine 0.5 L Glucose 145 H Ferritin AST 115 H ALT 135 H Lactate Dehydrogenase 452 H C-Reactive Protein Albumin 3.4 L Urine pH Coronavirus (PCR)
[2019-12-08] MEDS: REMDESIVIR 100 MG in SODIUM CHLORIDE 0.9% 250ML 250 ML IV SCH (22:00)
[2019-12-09 06:27] LABS: Hematocrit 42.7 % (35.5-45.6); Hemoglobin 14.2 gm/dl (11.8-15.2); Mean Corpuscular HGB Conc 33 % (32-34); Mean Corpuscular Volume 86 fl (84-94); Platelet Count 428 K/mm3 (140-440); Red Blood Count 4.98 M/mm3 (3.65-5.03); Red Cell Distribution Width 14.1 % (13.2-15.2)
[2019-12-09] MEDS: HEPARIN 5,000 UNIT/1 ML VIAL SUB-Q SCH ×3 (06:30→21:50)
[2019-12-09 06:49] LABS: Alanine Aminotransferase 461 units/L (7-56); Albumin 3.1 g/dL (3.9-5); BUN/Creatinine Ratio 24; Blood Urea Nitrogen 12 mg/dL (9-20); Calcium 9.9 mg/dL (8.4-10.2); Hemolysis Index 12
[2019-12-09 09:01] LABS: Basophils % (Manual) 0 % (0.0-1.8); Eosinophils % (Manual) 0 % (0.0-4.3); Large Platelets Few; Platelet Estimate Consistent w Auto; RBC Morphology Normal; Total Cells Counted 100
[2019-12-09] MEDS: DEXAMETHASONE 4 MG TAB PO SCH (10:23)
--- NOTE | 2019-12-09 10:35 | Progress Note ---
Assessment and Plan Assessment and plan: 44-year-old male with no significant past medical history presenting to the emergency room today complaining of shortness of breath which has been ongoing for about a week. Patient has also had a cough and generalized body aches and pain. Patient states his symptoms has worsened over the past few days. He has had some low-grade fever at home. He denies any chest pain, no nausea vomiting, no abdominal pain, no diarrhea. Patient denies any sick contacts and no recent travel. He denies any contact with anyone with COVID-19. Patient was slightly hypoxic upon arrival in the emergency room. Work-up in the emergency room reveals bilateral infiltrates in the lower lobes on chest x-ray. He was started on empiric IV antibiotics and also placed on isolation precautions to rule out COVID-19. 12/05 Patient is awake alert and oriented Complaints of shortness of breath with minimal effort Complains of dry cough He denies any fever or chills Lab results reviewed COVID-19 test is positive 12/06 Patient is awake and alert He is moderately dyspneic by taking 1 or 2 steps and gets hypoxic with minimal effort He is on 6 L oxygen via nasal cannula Lab results reviewed Discussed with ID Dr. Keller over the phone 12/07 Patient is alert and oriented and feels better at rest but gets short of breath and hypoxic with mild effort He denies any cough, fever, chills, chest pain or abdominal pain He is now on 8 L oxygen via nasal cannula Lab results reviewed 12/08: Down to 6 L of oxygen via nasal cannula. Pulmonary input is noted. ID input is noted. Continue steroids today is day 3 out of 10. On Remdesivir, got Actemra 12/07/19. Continue to monitor inflammatory markers Assessment and plan Bilateral pneumonia Chest x-ray reviewed Procalcitonin in the normal range Discontinue IV antibiotics Acute hypoxic respiratory failure Continue oxygen via nasal cannula Patient initially was on 8 L oxygen via nasal cannula He gets severely dyspneic and hypoxic with minimal effort Discussed with TEDDY Keller over the phone Status post 1 dose of Actemra at 8 mg/kg pulmonary consult note reviewed COVID-19 pneumonia Continue isolation precautions All inflammatory markers reviewed and are trending up Continue Decadron Brief ID note reviewed Started on Remdesivir Leukocytosis Likely reactive Monitor CBC Pro calcitonin is normal Elevated LFTs Likely secondary to COVID 19 virus Hyponatremia Improved Hyperglycemia Likely secondary to IV Decadron Monitor History Interval history: Patient seen and examined sitting up at bedside. Interpretation according to the patient's request slowly through his friend so that he understands and is updated on his progress. Continues to have some shortness of breath although improving some. Hospitalist Physical - Physical exam Narrative exam: VITAL SIGNS: Reviewed. GENERAL: The patient appears normally developed, lethargic, vital signs as documented. HEAD: No signs of head trauma. EYES: Pupils are equal. Extraocular motions intact. EARS: Hearing grossly intact. MOUTH: Oropharynx is normal. NECK: No adenopathy, no JVD. CHEST: Chest with diminished breath sounds bilaterally. No wheezes, rales, or rhonchi. CARDIAC: Regular rate and rhythm. S1 and S2, without murmurs, gallops, or rubs. VASCULAR: No Edema. Peripheral pulses normal and equal in all extremities. ABDOMEN: Soft, non tender and non distended. No rebound or guarding, and no masses palpated. Bowel Sounds normal. MUSCULOSKELETAL: Good range of motion of all major joints. Extremities without clubbing, cyanosis or edema. NEUROLOGIC EXAM: Alert and oriented x 3 No focal sensory or strength deficits. Speech normal. Follows commands. PSYCHIATRIC: Mood normal. SKIN: detial exam as documented in skin assessment - Constitutional Vitals: Temp Pulse Resp BP Pulse Ox 97.9 F 64 18 131/85 91 12/09/19 05:49 12/09/19 05:49 12/09/19 05:49 12/09/19 05:49 12/09/19 05:49 General appearance: Present: no acute distress, well-nourished HEART Score - HEART Score Troponin: Troponin T < 0.010 ng/mL (0.00-0.029) 12/05/19 20:31 Results - Labs CBC & Chem 7: 12/10/19 04:38 12/10/19 04:38 Labs: Laboratory Last Values WBC 7.6 K/mm3 (4.5-11.0) 12/09/19 05:08 RBC 4.98 M/mm3 (3.65-5.03) 12/09/19 05:08 Hgb 14.2 gm/dl (11.8-15.2) 12/09/19 05:08 Hct 42.7 % (35.5-45.6) 12/09/19 05:08 MCV 86 fl (84-94) 12/09/19 05:08 MCH 29 pg (28-32) 12/09/19 05:08 MCHC 33 % (32-34) 12/09/19 05:08 RDW 14.1 % (13.2-15.2) 12/09/19 05:08 Plt Count 428 K/mm3 (140-440) 12/09/19 05:08 Lymph % (Auto) 5.6 % (13.4-35.0) L 12/07/19 05:08 [place] % (Auto) 4.9 % (0.0-7.3) 12/07/19 05:08 Eos % (Auto) 0.0 % (0.0-4.3) 12/07/19 05:08 Baso % (Auto) 0.1 % (0.0-1.8) 12/07/19 05:08 Lymph # 0.8 K/mm3 (1.2-5.4) L 12/07/19 05:08 [place] # 0.7 K/mm3 (0.0-0.8) 12/07/19 05:08 Eos # 0.0 K/mm3 (0.0-0.4) 12/07/19 05:08 Baso # 0.0 K/mm3 (0.0-0.1) 12/07/19 05:08 Add Manual Diff Complete 12/09/19 05:08 Total Counted 100 12/09/19 05:08 Seg Neutrophils % 89.4 % (40.0-70.0) H 12/07/19 05:08 Seg Neuts % (Manual) 71.0 % (40.0-70.0) H 12/09/19 05:08 Band Neutrophils % 0 % 12/09/19 05:08 Lymphocytes % (Manual) 20.0 % (13.4-35.0) 12/09/19 05:08 Reactive Lymphs % (Man) 0 % 12/09/19 05:08 Monocytes % (Manual) 9.0 % (0.0-7.3) H 12/09/19 05:08 Eosinophils % (Manual) 0 % (0.0-4.3) 12/09/19 05:08 Basophils % (Manual) 0 % (0.0-1.8) 12/09/19 05:08 Metamyelocytes % 0 % 12/09/19 05:08 Myelocytes % 0 % 12/09/19 05:08 Promyelocytes % 0 % 12/09/19 05:08 Blast Cells % 0 % 12/09/19 05:08 Nucleated RBC % Not Reportable 12/09/19 05:08 Seg Neutrophils # 13.1 K/mm3 (1.8-7.7) H 12/07/19 05:08 Seg Neutrophils # Man 5.4 K/mm3 (1.8-7.7) 12/09/19 05:08 Band Neutrophils # 0.0 K/mm3 12/09/19 05:08 Lymphocytes # (Manual) 1.5 K/mm3 (1.2-5.4) 12/09/19 05:08 Abs React Lymphs (Man) 0.0 K/mm3 12/09/19 05:08 Monocytes # (Manual) 0.7 K/mm3 (0.0-0.8) 12/09/19 05:08 Eosinophils # (Manual) 0.0 K/mm3 (0.0-0.4) 12/09/19 05:08 Basophils # (Manual) 0.0 K/mm3 (0.0-0.1) 12/09/19 05:08 Metamyelocytes # 0.0 K/mm3 12/09/19 05:08 Myelocytes # 0.0 K/mm3 12/09/19 05:08 Promyelocytes # 0.0 K/mm3 12/09/19 05:08 Blast Cells # 0.0 K/mm3 12/09/19 05:08 WBC Morphology Not Reportable 12/09/19 05:08 Hypersegmented Neuts Not Reportable 12/09/19 05:08 Hyposegmented Neuts Not Reportable 12/09/19 05:08 Hypogranular Neuts Not Reportable 12/09/19 05:08 Smudge Cells Not Reportable 12/09/19 05:08 Toxic Granulation Not Reportable 12/09/19 05:08 Toxic Vacuolation Not Reportable 12/09/19 05:08 Dohle Bodies Not Reportable 12/09/19 05:08 Pelger-Huet Anomaly Not Reportable 12/09/19 05:08 Aline Rods Not Reportable 12/09/19 05:08 Platelet Estimate Consistent w auto 12/09/19 05:08 Clumped Platelets Not Reportable 12/09/19 05:08 Plt Clumps, EDTA Not Reportable 12/09/19 05:08 Large Platelets Few 12/09/19 05:08 Giant Platelets Not Reportable 12/09/19 05:08 Platelet Satelliting Not Reportable 12/09/19 05:08 Plt Morphology Comment Not Reportable 12/09/19 05:08 RBC Morphology Normal 12/09/19 05:08 Dimorphic RBCs Not Reportable 12/09/19 05:08 Polychromasia Not Reportable 12/09/19 05:08 Hypochromasia Not Reportable 12/09/19 05:08 Poikilocytosis Not Reportable 12/09/19 05:08 Anisocytosis Not Reportable 12/09/19 05:08 Microcytosis Not Reportable 12/09/19 05:08 Macrocytosis Not Reportable 12/09/19 05:08 Spherocytes Not Reportable 12/09/19 05:08 Pappenheimer Bodies Not Reportable 12/09/19 05:08 Sickle Cells Not Reportable 12/09/19 05:08 Target Cells Not Reportable 12/09/19 05:08 Tear Drop Cells Not Reportable 12/09/19 05:08 Ovalocytes Not Reportable 12/09/19 05:08 Helmet Cells Not Reportable 12/09/19 05:08 [place] Bodies Not Reportable 12/09/19 05:08 [place] Rings Not Reportable 12/09/19 05:08 Richard Cells Not Reportable 12/09/19 05:08 Bite Cells Not Reportable 12/09/19 05:08 Crenated Cell Not Reportable 12/09/19 05:08 Elliptocytes Not Reportable 12/09/19 05:08 Acanthocytes (Spur) Not Reportable 12/09/19 05:08 Rouleaux Not Reportable 12/09/19 05:08 Hemoglobin C Crystals Not Reportable 12/09/19 05:08 Schistocytes Not Reportable 12/09/19 05:08 Malaria parasites Not Reportable 12/09/19 05:08 Jeffy Bodies Not Reportable 12/09/19 05:08 Hem Pathologist Commnt No 12/09/19 05:08 PT 13.0 Sec. (12.2-14.9) 12/06/19 04:53 INR 1.00 (0.87-1.13) 12/06/19 04:53 D-Dimer 481.48 ng/mlDDU (0-234) H 12/09/19 05:08 Sodium 138 mmol/L (137-145) 12/09/19 05:08 Potassium 4.7 mmol/L (3.6-5.0) 12/09/19 05:08 Chloride 102.3 mmol/L (98-107) 12/09/19 05:08 Carbon Dioxide 25 mmol/L (22-30) 12/09/19 05:08 Anion Gap 15 mmol/L 12/09/19 05:08 BUN 12 mg/dL (9-20) 12/09/19 05:08 Creatinine 0.5 mg/dL (0.8-1.5) L 12/09/19 05:08 Estimated GFR > 60 ml/min 12/09/19 05:08 BUN/Creatinine Ratio 24 % 12/09/19 05:08 Glucose 138 mg/dL (75-100) H 12/09/19 05:08 Lactic Acid 1.10 mmol/L (0.7-2.0) 12/06/19 01:18 Calcium 9.9 mg/dL (8.4-10.2) 12/09/19 05:08 Ferritin 999.3 ng/mL (13.0-400.0) H 12/09/19 05:08 Total Bilirubin 0.30 mg/dL (0.1-1.2) 12/09/19 05:08 AST 182 units/L (5-40) H 12/09/19 05:08 ALT 461 units/L (7-56) H 12/09/19 05:08 Alkaline Phosphatase 98 units/L (35-129) 12/09/19 05:08 Lactate Dehydrogenase 360 units/L (91-180) H 12/09/19 05:08 Total Creatine Kinase 116 units/L (55-170) 12/05/19 20:31 CK-MB (CK-2) < 1.0 ng/mL (0.0-4.0) 12/05/19 20:31 CK-MB (CK-2) Rel Index 0.8 (0-4) 12/05/19 20:31 Troponin T < 0.010 ng/mL (0.00-0.029) 12/05/19 20:31 C-Reactive Protein 2.60 mg/dL (0.00-1.30) H 12/09/19 05:08 Total Protein 6.7 g/dL (6.3-8.2) 12/09/19 05:08 Albumin 3.1 g/dL (3.9-5) L 12/09/19 05:08 Albumin/Globulin Ratio 0.9 % 12/09/19 05:08 Procalcitonin 0.22 ng/mL (<0.15) 12/05/19 20:31 Urine Color Yellow (Yellow) 12/05/19 20:58 Urine Turbidity Clear (Clear) 12/05/19 20:58 Urine pH 8.0 (5.0-7.0) H 12/05/19 20:58 Ur Specific [place] 1.014 (1.003-1.030) 12/05/19 20:58 Urine Protein 30 mg/dl mg/dL (Negative) 12/05/19 20:58 Urine Glucose (UA) Neg mg/dL (Negative) 12/05/19 20:58 Urine Ketones Neg mg/dL (Negative) 12/05/19 20:58 Urine Blood Neg (Negative) 12/05/19 20:58 Urine Nitrite Neg (Negative) 12/05/19 20:58 Urine Bilirubin Neg (Negative) 12/05/19 20:58 Urine Urobilinogen < 2.0 mg/dL (<2.0) 12/05/19 20:58 Ur Leukocyte Esterase Neg (Negative) 12/05/19 20:58 Urine WBC (Auto) 1.0 /HPF (0.0-6.0) 12/05/19 20:58 Urine RBC (Auto) 2.0 /HPF (0.0-6.0) 12/05/19 20:58 Urine Mucus Few /HPF 12/05/19 20:58 Coronavirus (PCR) Positive (Negative) A 12/05/19 Unknown Microbiology: Microbiology 12/05/19 20:35 Peripheral/Venous Blood Culture - Preliminary NO GROWTH AFTER 72 HOURS 12/05/19 20:31 Peripheral/Venous Blood Culture - Preliminary NO GROWTH AFTER 72 HOURS [place]/IV: Voiding Method Toilet IV Catheter Type [Left INT / Saline Lock Antecubital] Active Medications - Current Medications Current Medications: Generic Name Dose Route Start Last Admin Trade Name Freq PRN Reason Stop Dose Admin Acetaminophen 650 mg 12/05/19 23:08 Tylenol PO Q4H PRN Pain MILD(1-3)/Fever >100.5/[facility] Dexamethasone 6 mg 12/06/19 10:00 12/09/19 10:23 Decadron PO 6 mg DAILY IVÁN Administration Heparin Sodium (Porcine) 5,000 unit 12/06/19 06:00 12/09/19 06:30 Heparin SUB-Q 5,000 unit Q8HR IVÁN Administration REMDESIVIR 100 mg/ Sodium 250 mls @ 500 mls/hr 12/07/19 21:00 12/08/19 22:00 Chloride IV 12/10/19 21:29 500 mls/hr Q24HR@2100 IVÁN Administration Magnesium Hydroxide 30 ml 12/05/19 23:08 Milk Of Magnesia PO Q4H PRN Constipation Ondansetron HCl 4 mg 12/05/19 23:08 Zofran IV Q8H PRN Nausea And Vomiting Sodium Chloride 10 ml 12/06/19 10:00 12/09/19 10:24 Sodium Chloride Flush Syringe 10 Ml IV 10 ml BID IVÁN Administration Sodium Chloride 10 ml 12/05/19 23:08 Sodium Chloride Flush Syringe 10 Ml IV PRN PRN LINE FLUSH
--- NOTE | 2019-12-09 11:48 | Consultation ---
History of Present Illness - Reason for Consult Consult date: 12/09/19 covid Requesting physician: KATERINE CHRISTIAN - History of Present Illness 44-year-old male with no significant past medical history admitted on 12/05/2019 due to a week history of cough and shortness of breath associated with generalized malaise, body aches and fever.. He denies any chest pain, no nausea vomiting, no abdominal pain, no diarrhea. Patient denies any sick contacts and no recent travel. He denies any contact with anyone with COVID-19. On arrival, initial temperature 102.5, HR 114, O2 sat 93% on room air. Initial WBC 14.2. D-dimer 295 1 up to 481. Ferritin 887. LDH 408. CRP 23. AST 74, ALT 90. Chest x-ray showed bilateral infiltrates. Review of Systems: positive in bold print General: + fever, +chills, +malaise Cutaneous: rash, pruritus Head: headaches or injury Eyes: changes in vision, eye pain, double vision Ears: ear pain, ear discharge, ringing or hearing loss Nose: nose bleeding, stuffiness Mouth & throat: bleeding gums, horseness, no dental problems, or swollen glands Neck: no pain, node enlargement/lumps, tyroid enlargement or tenderness Respiratory: +SOB, +cough, +VAUGHN, wheezing, sputum, hemoptysis, pleuritic chest pain Cardiovascular: chest pain, leg edema, cyanosis, VAUGHN, orthopnea Musculoskeletal: edema, deformities, clubbing Gastrointestinal: nausea, vomiting, hematemesis, diarrhea, constipation, melena, bright red blood in stools, fecal incontinence, jaundice Genitourinary/Reproductive: frequent urination, dysuria, hematuria, incontinence Neurogical: confusion, seizures, headaches, weakness, paresthesias, loss of speech or vision; memory loss, vertigo, tremors, numbness Psychiatric: stable mood; excessive anxiety, sadness or moodiness Past History Past Medical History: No medical history Past Surgical History: No surgical history Social history: alcohol abuse (Drinks alcohol occasionally) Family history: no significant family history Medications and Allergies Allergies Allergy/AdvReac Type Severity Reaction Status Date / Time No Known Allergies Allergy Verified 12/05/19 23:18 Active Meds: Active Medications Acetaminophen (Tylenol) 650 mg PO Q4H PRN PRN Reason: Pain MILD(1-3)/Fever >100.5/WILSON Dexamethasone (Decadron) 6 mg PO DAILY [facility] Last Admin: 12/09/19 10:23 Dose: 6 mg Documented by: Heparin Sodium (Porcine) (Heparin) 5,000 unit SUB-Q Q8HR [facility] Last Admin: 12/09/19 06:30 Dose: 5,000 unit Documented by: REMDESIVIR 100 mg/ Sodium (Chloride) 250 mls @ 500 mls/hr IV Q24HR@2100 [facility] Stop: 12/10/19 21:29 Last Admin: 12/08/19 22:00 Dose: 500 mls/hr Documented by: Magnesium Hydroxide (Milk Of Magnesia) 30 ml PO Q4H PRN PRN Reason: Constipation Ondansetron HCl (Zofran) 4 mg IV Q8H PRN PRN Reason: Nausea And Vomiting Sodium Chloride (Sodium Chloride Flush Syringe 10 Ml) 10 ml IV BID [facility] Last Admin: 12/09/19 10:24 Dose: 10 ml Documented by: Sodium Chloride (Sodium Chloride Flush Syringe 10 Ml) 10 ml IV PRN PRN PRN Reason: LINE FLUSH Physical Examination - Physical Exam Narrative exam: Physical Exam: reviewed ED and hospitalist notes, limited due to conservation of PPE General appearance: limited due to conservation of PPE Eyes: limited due to conservation of PPE HENT: Atraumatic; limited due to conservation of PPE Lungs: limited due to conservation of PPE CV: limited due to conservation of PPE Abdomen: limited due to conservation of PPE Extremities: limited due to conservation of PPE Skin: limited due to conservation of PPE Psych: limited due to conservation of PPE Neuro: limited due to conservation of PPE - Constitutional Vitals: Vital Signs Temp Pulse Resp BP Pulse Ox 97.9 F 64 18 131/85 91 12/09/19 05:49 12/09/19 05:49 12/09/19 05:49 12/09/19 05:49 12/09/19 05:49 Temperature -Last 24 Hours Temperature 97.9 F Temperature 97.4 F Temperature 97.7 F Temperature 98.1 F Results - Labs CBC & Chem 7: 12/09/19 05:08 12/09/19 05:08 Labs: Abnormal lab results 12/09/19 12/09/19 12/09/19 Range/Units 05:08 05:08 05:08 Seg Neuts % (Manual) 71.0 H (40.0-70.0) % Monocytes % (Manual) 9.0 H (0.0-7.3) % D-Dimer 481.48 H (0-234) ng/mlDDU Creatinine 0.5 L (0.8-1.5) mg/dL Glucose 138 H (75-100) mg/dL Ferritin (13.0-400.0) ng/mL AST 182 H (5-40) units/L ALT 461 H (7-56) units/L Lactate Dehydrogenase 360 H (91-180) units/L C-Reactive Protein 2.60 H (0.00-1.30) mg/dL Albumin 3.1 L (3.9-5) g/dL 12/09/19 Range/Units 05:08 Seg Neuts % (Manual) (40.0-70.0) % Monocytes % (Manual) (0.0-7.3) % D-Dimer (0-234) ng/mlDDU Creatinine (0.8-1.5) mg/dL Glucose (75-100) mg/dL Ferritin 999.3 H (13.0-400.0) ng/mL AST (5-40) units/L ALT (7-56) units/L Lactate Dehydrogenase (91-180) units/L C-Reactive Protein (0.00-1.30) mg/dL Albumin (3.9-5) g/dL Assessment and Plan Cultures: Blood culture no growth today Assessment: 44-year-old male with no significant past medical history admitted on 12/05/2019 due to a week history of cough and shortness of breath associated with generalized malaise, body aches and fever: #Severe sepsis: likely due to bilateral pneumonia. #Severe COVID pneumonia: Patient presented with a week of symptoms, chest x-ray with diffuse bilateral infiltrates. Admission O2 sats 93% on room air. Inflammatory markers are elevated - D-dimer 295 1 up to 481. Ferritin 887. LDH 408. CRP 23. 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 #Acute hypoxemic respiratory failure: Currently on 2 L nasal cannula oxygen sats 91% #Elevated LFTs: from COVID Recommendations: Continue dexamethasone 6 mg IV/PO daily for 10 days Continue Remdesivir 200 mg IV q day x 1 day followed by 100 mg IV q day x 4 days S/p Tocilizumab 8 mg/kg IV x 1 on 12/07/2019 Obtain daily inflammatory markers - ferritin, Ddimer, CRP, LDH Continue prophylactic anticoagulation Obtain IL-6 level Will follow Betty Tavares MD Infectious Diseases [employer] [facility] M [phone] O [phone]
[2019-12-09] MEDS ORDERED: TOCILIZUMAB 400 MG in SODIUM CHLORIDE 0.9% 100 ML IV ONE (11:52)
--- NOTE | 2019-12-09 13:48 | Progress Note ---
Assessment and Plan 44 y/o male with acute respiratory failure secondary to COVID 19 1. Prone patient as often as possible during the day and sleep prone at night 2. Continue steroids, day of 3. On Remdesivir, got Actemra yesterday. 4. Wean FiO2 for sats >88%, currently on 6 liters NC. Concerning now for worsening infection. At this point, may consider going up on steroids if patient's oxygen requirement does not improve. 5. Please do not give any additional IVF's unless related to therapy like piggybacks for Remdesivir Will continue to follow along with you. Subjective Date of service: 12/09/19 Interval history: Oxygen requirement has gone up overnight to 6 liters. sats in the low 90's. BP normal slightly tachypnic. Objective Vital Signs - 12hr 12/09/19 05:49 Temperature 97.9 F Pulse Rate 64 Respiratory 18 Rate Blood Pressure 131/85 O2 Sat by Pulse 91 Oximetry CBC and BMP: 12/09/19 05:08 12/09/19 05:08 ABG, PT/INR, D-dimer: PT/INR, D-dimer PT 13.0 Sec. (12.2-14.9) 12/06/19 04:53 INR 1.00 (0.87-1.13) 12/06/19 04:53 D-Dimer 481.48 ng/mlDDU (0-234) H 12/09/19 05:08 Abnormal lab findings: Abnormal Labs 12/05/19 12/05/19 12/05/19 20:31 20:31 20:31 WBC 14.2 H Lymph % (Auto) Lymph # Seg Neutrophils % Seg Neuts % (Manual) 89.0 H Lymphocytes % (Manual) 7.0 L Monocytes % (Manual) Seg Neutrophils # Seg Neutrophils # Man 12.6 H Lymphocytes # (Manual) 1.0 L D-Dimer 295.04 H Sodium 131 L Chloride 96.1 L BUN 6 L Creatinine 0.6 L Glucose 126 H Ferritin AST 74 H ALT 90 H Lactate Dehydrogenase C-Reactive Protein Albumin 3.4 L Urine pH Coronavirus (PCR) 12/05/19 12/05/19 12/05/19 20:31 20:31 20:58 WBC Lymph % (Auto) Lymph # Seg Neutrophils % Seg Neuts % (Manual) Lymphocytes % (Manual) Monocytes % (Manual) Seg Neutrophils # Seg Neutrophils # Man Lymphocytes # (Manual) D-Dimer Sodium Chloride BUN Creatinine Glucose 128 H Ferritin 887.8 H AST ALT Lactate Dehydrogenase 408 H C-Reactive Protein 23.90 H Albumin Urine pH 8.0 H Coronavirus (PCR) 12/05/19 12/06/19 12/06/19 Unknown 04:53 04:53 WBC 13.8 H Lymph % (Auto) Lymph # Seg Neutrophils % Seg Neuts % (Manual) 84.0 H Lymphocytes % (Manual) 5.0 L Monocytes % (Manual) Seg Neutrophils # Seg Neutrophils # Man 11.6 H Lymphocytes # (Manual) 0.7 L D-Dimer Sodium Chloride BUN 8 L Creatinine 0.6 L Glucose 160 H Ferritin AST ALT Lactate Dehydrogenase C-Reactive Protein Albumin Urine pH Coronavirus (PCR) Positive A 12/07/19 12/07/19 12/07/19 05:08 05:08 05:08 WBC 14.7 H Lymph % (Auto) 5.6 L Lymph # 0.8 L Seg Neutrophils % 89.4 H Seg Neuts % (Manual) Lymphocytes % (Manual) Monocytes % (Manual) Seg Neutrophils # 13.1 H Seg Neutrophils # Man Lymphocytes # (Manual) D-Dimer 373.63 H Sodium Chloride BUN Creatinine Glucose Ferritin 1223.0 H AST ALT Lactate Dehydrogenase C-Reactive Protein Albumin Urine pH Coronavirus (PCR) 12/07/19 12/09/19 12/09/19 05:08 05:08 05:08 WBC Lymph % (Auto) Lymph # Seg Neutrophils % Seg Neuts % (Manual) 71.0 H Lymphocytes % (Manual) Monocytes % (Manual) 9.0 H Seg Neutrophils # Seg Neutrophils # Man Lymphocytes # (Manual) D-Dimer 481.48 H Sodium Chloride BUN Creatinine 0.5 L Glucose 145 H Ferritin AST 115 H ALT 135 H Lactate Dehydrogenase 452 H C-Reactive Protein Albumin 3.4 L Urine pH Coronavirus (PCR) 12/09/19 12/09/19 05:08 05:08 WBC Lymph % (Auto) Lymph # Seg Neutrophils % Seg Neuts % (Manual) Lymphocytes % (Manual) Monocytes % (Manual) Seg Neutrophils # Seg Neutrophils # Man Lymphocytes # (Manual) D-Dimer Sodium Chloride BUN Creatinine 0.5 L Glucose 138 H Ferritin 999.3 H AST 182 H ALT 461 H Lactate Dehydrogenase 360 H C-Reactive Protein 2.60 H Albumin 3.1 L Urine pH Coronavirus (PCR)
[2019-12-09] MEDS: REMDESIVIR 100 MG in SODIUM CHLORIDE 0.9% 250ML 250 ML IV SCH (21:50)
[2019-12-10 06:05] LABS: Hematocrit 44.7 % (35.5-45.6); Hemoglobin 15.1 gm/dl (11.8-15.2); Mean Corpuscular HGB Conc 34 % (32-34); Mean Corpuscular Volume 86 fl (84-94); Platelet Count 509 K/mm3 (140-440); Red Cell Distribution Width 13.9 % (13.2-15.2)
[2019-12-10] MEDS: HEPARIN 5,000 UNIT/1 ML VIAL SUB-Q SCH ×3 (06:06→21:13)
[2019-12-10 06:16] LABS: Alanine Aminotransferase 312 units/L (7-56); Albumin 3.2 g/dL (3.9-5); BUN/Creatinine Ratio 28; Blood Urea Nitrogen 14 mg/dL (9-20); Calcium 9.8 mg/dL (8.4-10.2); Hemolysis Index 3
--- NOTE | 2019-12-10 08:58 | Progress Note ---
Assessment and Plan Assessment and plan: 44-year-old male with no significant past medical history presenting to the emergency room today complaining of shortness of breath which has been ongoing for about a week. Patient has also had a cough and generalized body aches and pain. Patient states his symptoms has worsened over the past few days. He has had some low-grade fever at home. He denies any chest pain, no nausea vomiting, no abdominal pain, no diarrhea. Patient denies any sick contacts and no recent travel. He denies any contact with anyone with COVID-19. Patient was slightly hypoxic upon arrival in the emergency room. Work-up in the emergency room reveals bilateral infiltrates in the lower lobes on chest x-ray. He was started on empiric IV antibiotics and also placed on isolation precautions to rule out COVID-19. 12/05 Patient is awake alert and oriented Complaints of shortness of breath with minimal effort Complains of dry cough He denies any fever or chills Lab results reviewed COVID-19 test is positive 12/06 Patient is awake and alert He is moderately dyspneic by taking 1 or 2 steps and gets hypoxic with minimal effort He is on 6 L oxygen via nasal cannula Lab results reviewed Discussed with ID Dr. Keller over the phone 12/07 Patient is alert and oriented and feels better at rest but gets short of breath and hypoxic with mild effort He denies any cough, fever, chills, chest pain or abdominal pain He is now on 8 L oxygen via nasal cannula Lab results reviewed 12/08: Down to 6 L of oxygen via nasal cannula. Pulmonary input is noted. ID input is noted. Continue steroids today is day 3 out of 10. On Remdesivir, got Actemra 12/07/19. Continue to monitor inflammatory markers 12/09: Wean oxygen if patient is able to tolerate. Continue current therapy. Continue to wean oxygen aggressively. Assessment and plan Bilateral pneumonia Chest x-ray reviewed Procalcitonin in the normal range Discontinue IV antibiotics Acute hypoxic respiratory failure Continue oxygen via nasal cannula Patient initially was on 8 L oxygen via nasal cannula He gets severely dyspneic and hypoxic with minimal effort Discussed with ID Dr. Keller over the phone Status post 1 dose of Actemra at 8 mg/kg pulmonary consult note reviewed COVID-19 pneumonia Continue isolation precautions All inflammatory markers reviewed and are trending up Continue Decadron Brief ID note reviewed Started on Remdesivir Leukocytosis Likely reactive Monitor CBC Pro calcitonin is normal Elevated LFTs Likely secondary to COVID 19 virus Hyponatremia Improved Hyperglycemia Likely secondary to IV Decadron Monitor History Interval history: Patient seen and examined sitting up at bedside. changed oxygen to 5l as patient showing improvement Hospitalist Physical - Physical exam Narrative exam: VITAL SIGNS: Reviewed. GENERAL: The patient appears normally developed, vital signs as documented. HEAD: No signs of head trauma. EYES: Pupils are equal. Extraocular motions intact. EARS: Hearing grossly intact. MOUTH: Oropharynx is normal. NECK: No adenopathy, no JVD. CHEST: Chest with diminished breath sounds bilaterally. No wheezes, rales, or rhonchi. CARDIAC: Regular rate and rhythm. S1 and S2, without murmurs, gallops, or rubs. VASCULAR: No Edema. Peripheral pulses normal and equal in all extremities. ABDOMEN: Soft, non tender and non distended. No rebound or guarding, and no masses palpated. Bowel Sounds normal. MUSCULOSKELETAL: Good range of motion of all major joints. Extremities without clubbing, cyanosis or edema. NEUROLOGIC EXAM: Alert and oriented x 3 No focal sensory or strength deficits. Speech normal. Follows commands. PSYCHIATRIC: Mood normal. SKIN: detial exam as documented in skin assessment - Constitutional Vitals: Temp Pulse Resp BP Pulse Ox 97.8 F 54 L 18 113/67 97 12/10/19 05:10 12/10/19 05:10 12/10/19 05:10 12/10/19 05:10 12/10/19 05:10 General appearance: Present: no acute distress, well-nourished HEART Score - HEART Score Troponin: Troponin T < 0.010 ng/mL (0.00-0.029) 12/05/19 20:31 Results - Labs CBC & Chem 7: 12/10/19 04:38 12/10/19 04:38 Labs: Laboratory Last Values WBC 9.1 K/mm3 (4.5-11.0) 12/10/19 04:38 RBC 5.20 M/mm3 (3.65-5.03) H 12/10/19 04:38 Hgb 15.1 gm/dl (11.8-15.2) 12/10/19 04:38 Hct 44.7 % (35.5-45.6) 12/10/19 04:38 MCV 86 fl (84-94) 12/10/19 04:38 MCH 29 pg (28-32) 12/10/19 04:38 MCHC 34 % (32-34) 12/10/19 04:38 RDW 13.9 % (13.2-15.2) 12/10/19 04:38 Plt Count 509 K/mm3 (140-440) H 12/10/19 04:38 Lymph % (Auto) 5.6 % (13.4-35.0) L 12/07/19 05:08 Ocean % (Auto) 4.9 % (0.0-7.3) 12/07/19 05:08 Eos % (Auto) 0.0 % (0.0-4.3) 12/07/19 05:08 Baso % (Auto) 0.1 % (0.0-1.8) 12/07/19 05:08 Lymph # 0.8 K/mm3 (1.2-5.4) L 12/07/19 05:08 Ocean # 0.7 K/mm3 (0.0-0.8) 12/07/19 05:08 Eos # 0.0 K/mm3 (0.0-0.4) 12/07/19 05:08 Baso # 0.0 K/mm3 (0.0-0.1) 12/07/19 05:08 Add Manual Diff Complete 12/09/19 05:08 Total Counted 100 12/09/19 05:08 Seg Neutrophils % 89.4 % (40.0-70.0) H 12/07/19 05:08 Seg Neuts % (Manual) 71.0 % (40.0-70.0) H 12/09/19 05:08 Band Neutrophils % 0 % 12/09/19 05:08 Lymphocytes % (Manual) 20.0 % (13.4-35.0) 12/09/19 05:08 Reactive Lymphs % (Man) 0 % 12/09/19 05:08 Monocytes % (Manual) 9.0 % (0.0-7.3) H 12/09/19 05:08 Eosinophils % (Manual) 0 % (0.0-4.3) 12/09/19 05:08 Basophils % (Manual) 0 % (0.0-1.8) 12/09/19 05:08 Metamyelocytes % 0 % 12/09/19 05:08 Myelocytes % 0 % 12/09/19 05:08 Promyelocytes % 0 % 12/09/19 05:08 Blast Cells % 0 % 12/09/19 05:08 Nucleated RBC % Not Reportable 12/09/19 05:08 Seg Neutrophils # 13.1 K/mm3 (1.8-7.7) H 12/07/19 05:08 Seg Neutrophils # Man 5.4 K/mm3 (1.8-7.7) 12/09/19 05:08 Band Neutrophils # 0.0 K/mm3 12/09/19 05:08 Lymphocytes # (Manual) 1.5 K/mm3 (1.2-5.4) 12/09/19 05:08 Abs React Lymphs (Man) 0.0 K/mm3 12/09/19 05:08 Monocytes # (Manual) 0.7 K/mm3 (0.0-0.8) 12/09/19 05:08 Eosinophils # (Manual) 0.0 K/mm3 (0.0-0.4) 12/09/19 05:08 Basophils # (Manual) 0.0 K/mm3 (0.0-0.1) 12/09/19 05:08 Metamyelocytes # 0.0 K/mm3 12/09/19 05:08 Myelocytes # 0.0 K/mm3 12/09/19 05:08 Promyelocytes # 0.0 K/mm3 12/09/19 05:08 Blast Cells # 0.0 K/mm3 12/09/19 05:08 WBC Morphology Not Reportable 12/09/19 05:08 Hypersegmented Neuts Not Reportable 12/09/19 05:08 Hyposegmented Neuts Not Reportable 12/09/19 05:08 Hypogranular Neuts Not Reportable 12/09/19 05:08 Smudge Cells Not Reportable 12/09/19 05:08 Toxic Granulation Not Reportable 12/09/19 05:08 Toxic Vacuolation Not Reportable 12/09/19 05:08 Dohle Bodies Not Reportable 12/09/19 05:08 Pelger-Huet Anomaly Not Reportable 12/09/19 05:08 Aline Rods Not Reportable 12/09/19 05:08 Platelet Estimate Consistent w auto 12/09/19 05:08 Clumped Platelets Not Reportable 12/09/19 05:08 Plt Clumps, EDTA Not Reportable 12/09/19 05:08 Large Platelets Few 12/09/19 05:08 Giant Platelets Not Reportable 12/09/19 05:08 Platelet Satelliting Not Reportable 12/09/19 05:08 Plt Morphology Comment Not Reportable 12/09/19 05:08 RBC Morphology Normal 12/09/19 05:08 Dimorphic RBCs Not Reportable 12/09/19 05:08 Polychromasia Not Reportable 12/09/19 05:08 Hypochromasia Not Reportable 12/09/19 05:08 Poikilocytosis Not Reportable 12/09/19 05:08 Anisocytosis Not Reportable 12/09/19 05:08 Microcytosis Not Reportable 12/09/19 05:08 Macrocytosis Not Reportable 12/09/19 05:08 Spherocytes Not Reportable 12/09/19 05:08 Pappenheimer Bodies Not Reportable 12/09/19 05:08 Sickle Cells Not Reportable 12/09/19 05:08 Target Cells Not Reportable 12/09/19 05:08 Tear Drop Cells Not Reportable 12/09/19 05:08 Ovalocytes Not Reportable 12/09/19 05:08 Helmet Cells Not Reportable 12/09/19 05:08 Steen-Fairchilds Bodies Not Reportable 12/09/19 05:08 Triplett Rings Not Reportable 12/09/19 05:08 Sarona Cells Not Reportable 12/09/19 05:08 Bite Cells Not Reportable 12/09/19 05:08 Crenated Cell Not Reportable 12/09/19 05:08 Elliptocytes Not Reportable 12/09/19 05:08 Acanthocytes (Spur) Not Reportable 12/09/19 05:08 Rouleaux Not Reportable 12/09/19 05:08 Hemoglobin C Crystals Not Reportable 12/09/19 05:08 Schistocytes Not Reportable 12/09/19 05:08 Malaria parasites Not Reportable 12/09/19 05:08 Jeffy Bodies Not Reportable 12/09/19 05:08 Hem Pathologist Commnt No 12/09/19 05:08 PT 13.0 Sec. (12.2-14.9) 12/06/19 04:53 INR 1.00 (0.87-1.13) 12/06/19 04:53 D-Dimer 481.48 ng/mlDDU (0-234) H 12/09/19 05:08 Sodium 136 mmol/L (137-145) L 12/10/19 04:38 Potassium 4.1 mmol/L (3.6-5.0) 12/10/19 04:38 Chloride 101.1 mmol/L (98-107) 12/10/19 04:38 Carbon Dioxide 24 mmol/L (22-30) 12/10/19 04:38 Anion Gap 15 mmol/L 12/10/19 04:38 BUN 14 mg/dL (9-20) 12/10/19 04:38 Creatinine 0.5 mg/dL (0.8-1.5) L 12/10/19 04:38 Estimated GFR > 60 ml/min 12/10/19 04:38 BUN/Creatinine Ratio 28 % 12/10/19 04:38 Glucose 127 mg/dL (75-100) H 12/10/19 04:38 Lactic Acid 1.10 mmol/L (0.7-2.0) 12/06/19 01:18 Calcium 9.8 mg/dL (8.4-10.2) 12/10/19 04:38 Ferritin 999.3 ng/mL (13.0-400.0) H 12/09/19 05:08 Total Bilirubin 0.30 mg/dL (0.1-1.2) 12/10/19 04:38 AST 52 units/L (5-40) H 12/10/19 04:38 ALT 312 units/L (7-56) H 12/10/19 04:38 Alkaline Phosphatase 90 units/L (35-129) 12/10/19 04:38 Lactate Dehydrogenase 360 units/L (91-180) H 12/09/19 05:08 Total Creatine Kinase 116 units/L (55-170) 12/05/19 20:31 CK-MB (CK-2) < 1.0 ng/mL (0.0-4.0) 12/05/19 20:31 CK-MB (CK-2) Rel Index 0.8 (0-4) 12/05/19 20:31 Troponin T < 0.010 ng/mL (0.00-0.029) 12/05/19 20:31 C-Reactive Protein 2.60 mg/dL (0.00-1.30) H 12/09/19 05:08 Total Protein 7.0 g/dL (6.3-8.2) 12/10/19 04:38 Albumin 3.2 g/dL (3.9-5) L 12/10/19 04:38 Albumin/Globulin Ratio 0.8 % 12/10/19 04:38 Procalcitonin 0.22 ng/mL (<0.15) 12/05/19 20:31 Urine Color Yellow (Yellow) 12/05/19 20:58 Urine Turbidity Clear (Clear) 12/05/19 20:58 Urine pH 8.0 (5.0-7.0) H 12/05/19 20:58 Ur Specific [place] 1.014 (1.003-1.030) 12/05/19 20:58 Urine Protein 30 mg/dl mg/dL (Negative) 12/05/19 20:58 Urine Glucose (UA) Neg mg/dL (Negative) 12/05/19 20:58 Urine Ketones Neg mg/dL (Negative) 12/05/19 20:58 Urine Blood Neg (Negative) 12/05/19 20:58 Urine Nitrite Neg (Negative) 12/05/19 20:58 Urine Bilirubin Neg (Negative) 12/05/19 20:58 Urine Urobilinogen < 2.0 mg/dL (<2.0) 12/05/19 20:58 Ur Leukocyte Esterase Neg (Negative) 12/05/19 20:58 Urine WBC (Auto) 1.0 /HPF (0.0-6.0) 12/05/19 20:58 Urine RBC (Auto) 2.0 /HPF (0.0-6.0) 12/05/19 20:58 Urine Mucus Few /HPF 12/05/19 20:58 Coronavirus (PCR) Positive (Negative) A 12/05/19 Unknown Microbiology: Microbiology 12/05/19 20:35 Peripheral/Venous Blood Culture - Preliminary NO GROWTH AFTER 4 DAYS 12/05/19 20:31 Peripheral/Venous Blood Culture - Preliminary NO GROWTH AFTER 4 DAYS [place]/IV: Voiding Method Toilet IV Catheter Type [Left INT / Saline Lock Antecubital] Active Medications - Current Medications Current Medications: Generic Name Dose Route Start Last Admin Trade Name Freq PRN Reason Stop Dose Admin Acetaminophen 650 mg 12/05/19 23:08 Tylenol PO Q4H PRN Pain MILD(1-3)/Fever >100.5/WILSON Dexamethasone 6 mg 12/06/19 10:00 12/09/19 10:23 Decadron PO 12/15/19 10:01 6 mg DAILY IVÁN Administration Heparin Sodium (Porcine) 5,000 unit 12/06/19 06:00 12/10/19 06:06 Heparin SUB-Q 5,000 unit Q8HR IVÁN Administration REMDESIVIR 100 mg/ Sodium 250 mls @ 500 mls/hr 12/07/19 21:00 12/09/19 21:50 Chloride IV 12/10/19 21:29 500 mls/hr Q24HR@2100 IVÁN Administration Magnesium Hydroxide 30 ml 12/05/19 23:08 Milk Of Magnesia PO Q4H PRN Constipation Ondansetron HCl 4 mg 12/05/19 23:08 Zofran IV Q8H PRN Nausea And Vomiting Sodium Chloride 10 ml 12/06/19 10:00 12/09/19 21:54 Sodium Chloride Flush Syringe 10 Ml IV 10 ml BID IVNÁ Administration Sodium Chloride 10 ml 12/05/19 23:08 Sodium Chloride Flush Syringe 10 Ml IV PRN PRN LINE FLUSH
[2019-12-10] MEDS: DEXAMETHASONE 4 MG TAB PO SCH (09:23)
--- NOTE | 2019-12-10 09:59 | Progress Note ---
Assessment and Plan 44 y/o male with acute respiratory failure secondary to COVID 19 1. Prone patient as often as possible during the day and sleep prone at night 2. Continue steroids, day of , will hold on increasing for now. Will ask RT to wean oxygen more aggressively. 3. On Remdesivir, got Actemra 2 days ago. 4. Wean FiO2 for sats >88%, currently on 6 liters NC. new order placed to RT. 5. Please do not give any additional IVF's unless related to therapy like piggybacks for Remdesivir 6. No lasix today. Will reassess tomorrow. Will continue to follow along with you. Subjective Date of service: 12/10/19 Interval history: Sats documented are much better. As of last night still on 6 liters, no new RT notes yet. per nursing note still on 6 liters. Objective Vital Signs - 12hr 12/09/19 12/09/19 12/10/19 22:00 22:08 05:10 Temperature 98.3 F 97.8 F Pulse Rate 55 L 54 L Respiratory 20 20 18 Rate Blood Pressure 132/82 113/67 O2 Sat by Pulse 96 99 97 Oximetry CBC and BMP: 12/10/19 04:38 12/10/19 04:38 ABG, PT/INR, D-dimer: PT/INR, D-dimer PT 13.0 Sec. (12.2-14.9) 12/06/19 04:53 INR 1.00 (0.87-1.13) 12/06/19 04:53 D-Dimer 481.48 ng/mlDDU (0-234) H 12/09/19 05:08 Abnormal lab findings: Abnormal Labs 12/05/19 12/05/19 12/05/19 20:31 20:31 20:31 WBC 14.2 H RBC Plt Count Lymph % (Auto) Lymph # Seg Neutrophils % Seg Neuts % (Manual) 89.0 H Lymphocytes % (Manual) 7.0 L Monocytes % (Manual) Seg Neutrophils # Seg Neutrophils # Man 12.6 H Lymphocytes # (Manual) 1.0 L D-Dimer 295.04 H Sodium 131 L Chloride 96.1 L BUN 6 L Creatinine 0.6 L Glucose 126 H Ferritin AST 74 H ALT 90 H Lactate Dehydrogenase C-Reactive Protein Albumin 3.4 L Urine pH Coronavirus (PCR) 12/05/19 12/05/19 12/05/19 20:31 20:31 20:58 WBC RBC Plt Count Lymph % (Auto) Lymph # Seg Neutrophils % Seg Neuts % (Manual) Lymphocytes % (Manual) Monocytes % (Manual) Seg Neutrophils # Seg Neutrophils # Man Lymphocytes # (Manual) D-Dimer Sodium Chloride BUN Creatinine Glucose 128 H Ferritin 887.8 H AST ALT Lactate Dehydrogenase 408 H C-Reactive Protein 23.90 H Albumin Urine pH 8.0 H Coronavirus (PCR) 12/05/19 12/06/19 12/06/19 Unknown 04:53 04:53 WBC 13.8 H RBC Plt Count Lymph % (Auto) Lymph # Seg Neutrophils % Seg Neuts % (Manual) 84.0 H Lymphocytes % (Manual) 5.0 L Monocytes % (Manual) Seg Neutrophils # Seg Neutrophils # Man 11.6 H Lymphocytes # (Manual) 0.7 L D-Dimer Sodium Chloride BUN 8 L Creatinine 0.6 L Glucose 160 H Ferritin AST ALT Lactate Dehydrogenase C-Reactive Protein Albumin Urine pH Coronavirus (PCR) Positive A 12/07/19 12/07/19 12/07/19 05:08 05:08 05:08 WBC 14.7 H RBC Plt Count Lymph % (Auto) 5.6 L Lymph # 0.8 L Seg Neutrophils % 89.4 H Seg Neuts % (Manual) Lymphocytes % (Manual) Monocytes % (Manual) Seg Neutrophils # 13.1 H Seg Neutrophils # Man Lymphocytes # (Manual) D-Dimer 373.63 H Sodium Chloride BUN Creatinine Glucose Ferritin 1223.0 H AST ALT Lactate Dehydrogenase C-Reactive Protein Albumin Urine pH Coronavirus (PCR) 12/07/19 12/09/19 12/09/19 05:08 05:08 05:08 WBC RBC Plt Count Lymph % (Auto) Lymph # Seg Neutrophils % Seg Neuts % (Manual) 71.0 H Lymphocytes % (Manual) Monocytes % (Manual) 9.0 H Seg Neutrophils # Seg Neutrophils # Man Lymphocytes # (Manual) D-Dimer 481.48 H Sodium Chloride BUN Creatinine 0.5 L Glucose 145 H Ferritin AST 115 H ALT 135 H Lactate Dehydrogenase 452 H C-Reactive Protein Albumin 3.4 L Urine pH Coronavirus (PCR) 12/09/19 12/09/19 12/10/19 05:08 05:08 04:38 WBC RBC 5.20 H Plt Count 509 H Lymph % (Auto) Lymph # Seg Neutrophils % Seg Neuts % (Manual) Lymphocytes % (Manual) Monocytes % (Manual) Seg Neutrophils # Seg Neutrophils # Man Lymphocytes # (Manual) D-Dimer Sodium Chloride BUN Creatinine 0.5 L Glucose 138 H Ferritin 999.3 H AST 182 H ALT 461 H Lactate Dehydrogenase 360 H C-Reactive Protein 2.60 H Albumin 3.1 L Urine pH Coronavirus (PCR) 12/10/19 04:38 WBC RBC Plt Count Lymph % (Auto) Lymph # Seg Neutrophils % Seg Neuts % (Manual) Lymphocytes % (Manual) Monocytes % (Manual) Seg Neutrophils # Seg Neutrophils # Man Lymphocytes # (Manual) D-Dimer Sodium 136 L Chloride BUN Creatinine 0.5 L Glucose 127 H Ferritin AST 52 H ALT 312 H Lactate Dehydrogenase C-Reactive Protein Albumin 3.2 L Urine pH Coronavirus (PCR)
[2019-12-10] MEDS: REMDESIVIR 100 MG in SODIUM CHLORIDE 0.9% 250ML 250 ML IV SCH (21:13)
[2019-12-11] MEDS: HEPARIN 5,000 UNIT/1 ML VIAL SUB-Q SCH ×3 (06:19→21:45)
--- NOTE | 2019-12-11 08:09 | Progress Note ---
Assessment and Plan 44 y/o male with acute respiratory failure secondary to COVID 19 1. Prone patient as often as possible during the day and sleep prone at night. No documentation of this. 2. Continue steroids, day of , will hold on increasing for now. Will ask RT to wean oxygen more aggressively. Now down to 4 with a sat of 96. 3. Finished Remdesivir, and Actemra 4. Wean FiO2 for sats >88%, currently on 4 liters NC. new order placed to RT. 5. Please do not give any additional IVF's unless related to therapy like piggybacks for Remdesivir 6. No lasix today. Will reassess tomorrow. Will continue to follow along with you. Subjective Date of service: 12/11/19 Interval history: No acute events. Down to 4 liters with good sats as of last night. Remdesivir finished yesterday. Objective Vital Signs - 12hr 12/10/19 12/10/19 12/11/19 21:56 23:25 04:14 Temperature 99.6 F 97.7 F Pulse Rate 56 L 52 L Respiratory 20 18 Rate Blood Pressure 131/80 108/70 O2 Sat by Pulse 96 96 97 Oximetry CBC and BMP: 12/10/19 04:38 12/10/19 04:38 ABG, PT/INR, D-dimer: PT/INR, D-dimer PT 13.0 Sec. (12.2-14.9) 12/06/19 04:53 INR 1.00 (0.87-1.13) 12/06/19 04:53 D-Dimer 481.48 ng/mlDDU (0-234) H 12/09/19 05:08 Abnormal lab findings: Abnormal Labs 12/05/19 12/05/19 12/05/19 20:31 20:31 20:31 WBC 14.2 H RBC Plt Count Lymph % (Auto) Lymph # Seg Neutrophils % Seg Neuts % (Manual) 89.0 H Lymphocytes % (Manual) 7.0 L Monocytes % (Manual) Seg Neutrophils # Seg Neutrophils # Man 12.6 H Lymphocytes # (Manual) 1.0 L D-Dimer 295.04 H Sodium 131 L Chloride 96.1 L BUN 6 L Creatinine 0.6 L Glucose 126 H Ferritin AST 74 H ALT 90 H Lactate Dehydrogenase C-Reactive Protein Albumin 3.4 L Urine pH Coronavirus (PCR) 12/05/19 12/05/19 12/05/19 20:31 20:31 20:58 WBC RBC Plt Count Lymph % (Auto) Lymph # Seg Neutrophils % Seg Neuts % (Manual) Lymphocytes % (Manual) Monocytes % (Manual) Seg Neutrophils # Seg Neutrophils # Man Lymphocytes # (Manual) D-Dimer Sodium Chloride BUN Creatinine Glucose 128 H Ferritin 887.8 H AST ALT Lactate Dehydrogenase 408 H C-Reactive Protein 23.90 H Albumin Urine pH 8.0 H Coronavirus (PCR) 12/05/19 12/06/19 12/06/19 Unknown 04:53 04:53 WBC 13.8 H RBC Plt Count Lymph % (Auto) Lymph # Seg Neutrophils % Seg Neuts % (Manual) 84.0 H Lymphocytes % (Manual) 5.0 L Monocytes % (Manual) Seg Neutrophils # Seg Neutrophils # Man 11.6 H Lymphocytes # (Manual) 0.7 L D-Dimer Sodium Chloride BUN 8 L Creatinine 0.6 L Glucose 160 H Ferritin AST ALT Lactate Dehydrogenase C-Reactive Protein Albumin Urine pH Coronavirus (PCR) Positive A 12/07/19 12/07/19 12/07/19 05:08 05:08 05:08 WBC 14.7 H RBC Plt Count Lymph % (Auto) 5.6 L Lymph # 0.8 L Seg Neutrophils % 89.4 H Seg Neuts % (Manual) Lymphocytes % (Manual) Monocytes % (Manual) Seg Neutrophils # 13.1 H Seg Neutrophils # Man Lymphocytes # (Manual) D-Dimer 373.63 H Sodium Chloride BUN Creatinine Glucose Ferritin 1223.0 H AST ALT Lactate Dehydrogenase C-Reactive Protein Albumin Urine pH Coronavirus (PCR) 12/07/19 12/09/19 12/09/19 05:08 05:08 05:08 WBC RBC Plt Count Lymph % (Auto) Lymph # Seg Neutrophils % Seg Neuts % (Manual) 71.0 H Lymphocytes % (Manual) Monocytes % (Manual) 9.0 H Seg Neutrophils # Seg Neutrophils # Man Lymphocytes # (Manual) D-Dimer 481.48 H Sodium Chloride BUN Creatinine 0.5 L Glucose 145 H Ferritin AST 115 H ALT 135 H Lactate Dehydrogenase 452 H C-Reactive Protein Albumin 3.4 L Urine pH Coronavirus (PCR) 12/09/19 12/09/19 12/10/19 05:08 05:08 04:38 WBC RBC 5.20 H Plt Count 509 H Lymph % (Auto) Lymph # Seg Neutrophils % Seg Neuts % (Manual) Lymphocytes % (Manual) Monocytes % (Manual) Seg Neutrophils # Seg Neutrophils # Man Lymphocytes # (Manual) D-Dimer Sodium Chloride BUN Creatinine 0.5 L Glucose 138 H Ferritin 999.3 H AST 182 H ALT 461 H Lactate Dehydrogenase 360 H C-Reactive Protein 2.60 H Albumin 3.1 L Urine pH Coronavirus (PCR) 12/10/19 04:38 WBC RBC Plt Count Lymph % (Auto) Lymph # Seg Neutrophils % Seg Neuts % (Manual) Lymphocytes % (Manual) Monocytes % (Manual) Seg Neutrophils # Seg Neutrophils # Man Lymphocytes # (Manual) D-Dimer Sodium 136 L Chloride BUN Creatinine 0.5 L Glucose 127 H Ferritin AST 52 H ALT 312 H Lactate Dehydrogenase C-Reactive Protein Albumin 3.2 L Urine pH Coronavirus (PCR)
[2019-12-11] MEDS: DEXAMETHASONE 4 MG TAB PO SCH (09:12)
--- NOTE | 2019-12-11 16:31 | Progress Note ---
Assessment and Plan Cultures: Blood culture no growth today Assessment: 44-year-old male with no significant past medical history admitted on 12/05/2019 due to a week history of cough and shortness of breath associated with generalized malaise, body aches and fever: #Severe sepsis: likely due to bilateral pneumonia. #Severe COVID pneumonia: Patient presented with a week of symptoms, chest x-ray with diffuse bilateral infiltrates. Admission O2 sats 93% on room air. Inflammatory markers are elevated - D-dimer 295 1 up to 481. Ferritin 887. LDH 408. CRP 23. 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 #Acute hypoxemic respiratory failure: Currently on 4 L nasal cannula oxygen sats 91% #Elevated LFTs: from COVID Recommendations: Continue dexamethasone 6 mg IV/PO daily for 10 days Completed Remdesivir 200 mg IV q day x 1 day followed by 100 mg IV q day x 4 days S/p Tocilizumab 8 mg/kg IV x 1 on 12/07/2019 Obtain daily inflammatory markers - ferritin, Ddimer, CRP, LDH Continue prophylactic anticoagulation Follow-up IL-6 level We will follow Debra Lawrence MD [facility] ([facility]) M: [phone] O: [phone] F: [phone] Subjective Date of service: 12/11/19 Interval history: Afebrile, stable on 4 L nasal cannula Objective - Exam Narrative Exam: Physical exam deferred due to PPE conservation strategy. Please refer to [facility] team's note. - Constitutional Vitals: Vital Signs Temp Pulse Resp BP Pulse Ox 97.7 F 52 L 18 108/70 98 12/11/19 04:14 12/11/19 04:14 12/11/19 04:14 12/11/19 04:14 12/11/19 16:06 Temperature -Last 24 Hours Temperature 97.7 F Temperature 99.6 F Temperature 98.1 F - Labs CBC & Chem 7: 12/10/19 04:38 12/10/19 04:38
--- NOTE | 2019-12-11 19:25 | Progress Note ---
Assessment and Plan Assessment and plan: 44-year-old male with no significant past medical history presenting to the emergency room today complaining of shortness of breath which has been ongoing for about a week. Patient has also had a cough and generalized body aches and pain. Patient states his symptoms has worsened over the past few days. He has had some low-grade fever at home. He denies any chest pain, no nausea vomiting, no abdominal pain, no diarrhea. Patient denies any sick contacts and no recent travel. He denies any contact with anyone with COVID-19. Patient was slightly hypoxic upon arrival in the emergency room. Work-up in the emergency room reveals bilateral infiltrates in the lower lobes on chest x-ray. He was started on empiric IV antibiotics and also placed on isolation precautions to rule out COVID-19. 12/05 Patient is awake alert and oriented Complaints of shortness of breath with minimal effort Complains of dry cough He denies any fever or chills Lab results reviewed COVID-19 test is positive 12/06 Patient is awake and alert He is moderately dyspneic by taking 1 or 2 steps and gets hypoxic with minimal effort He is on 6 L oxygen via nasal cannula Lab results reviewed Discussed with TEDDY Keller over the phone 12/07 Patient is alert and oriented and feels better at rest but gets short of breath and hypoxic with mild effort He denies any cough, fever, chills, chest pain or abdominal pain He is now on 8 L oxygen via nasal cannula Lab results reviewed 12/08: Down to 6 L of oxygen via nasal cannula. Pulmonary input is noted. ID input is noted. Continue steroids today is day 3 out of 10. On Remdesivir, got Actemra 12/07/19. Continue to monitor inflammatory markers 12/09: Wean oxygen if patient is able to tolerate. Continue current therapy. Continue to wean oxygen aggressively. 12/10; continues to clinically improve. Down to 4 L of oxygen. Continue current therapy at this time. Assessment and plan Bilateral pneumonia Chest x-ray reviewed Procalcitonin in the normal range Discontinue IV antibiotics Acute hypoxic respiratory failure Continue oxygen via nasal cannula Patient initially was on 8 L oxygen via nasal cannula He gets severely dyspneic and hypoxic with minimal effort Discussed with TEDDY Keller over the phone Status post 1 dose of Actemra at 8 mg/kg pulmonary consult note reviewed COVID-19 pneumonia Continue isolation precautions All inflammatory markers reviewed and are trending up Continue Decadron Brief ID note reviewed Started on Remdesivir Leukocytosis Likely reactive Monitor CBC Pro calcitonin is normal Elevated LFTs Likely secondary to COVID 19 virus Hyponatremia Improved Hyperglycemia Likely secondary to IV Decadron Monitor History Interval history: Patient seen and examined sitting up at bedside. changed oxygen to 4l as patient showing improvement Hospitalist Physical - Physical exam Narrative exam: VITAL SIGNS: Reviewed. GENERAL: The patient appears normally developed, vital signs as documented. HEAD: No signs of head trauma. EYES: Pupils are equal. Extraocular motions intact. EARS: Hearing grossly intact. MOUTH: Oropharynx is normal. NECK: No adenopathy, no JVD. CHEST: Chest with diminished breath sounds bilaterally. No wheezes, rales, or rhonchi. CARDIAC: Regular rate and rhythm. S1 and S2, without murmurs, gallops, or rubs. VASCULAR: No Edema. Peripheral pulses normal and equal in all extremities. ABDOMEN: Soft, non tender and non distended. No rebound or guarding, and no masses palpated. Bowel Sounds normal. MUSCULOSKELETAL: Good range of motion of all major joints. Extremities without clubbing, cyanosis or edema. NEUROLOGIC EXAM: Alert and oriented x 3 No focal sensory or strength deficits. Speech normal. Follows commands. PSYCHIATRIC: Mood normal. SKIN: detial exam as documented in skin assessment - Constitutional Vitals: Temp Pulse Resp BP Pulse Ox 98.6 F 69 19 128/72 93 12/11/19 16:46 12/11/19 16:46 12/11/19 16:46 12/11/19 16:46 12/11/19 16:46 General appearance: Present: no acute distress, well-nourished HEART Score - HEART Score Troponin: Troponin T < 0.010 ng/mL (0.00-0.029) 12/05/19 20:31 Results - Labs CBC & Chem 7: 12/10/19 04:38 12/10/19 04:38 Labs: Laboratory Last Values WBC 9.1 K/mm3 (4.5-11.0) 12/10/19 04:38 RBC 5.20 M/mm3 (3.65-5.03) H 12/10/19 04:38 Hgb 15.1 gm/dl (11.8-15.2) 12/10/19 04:38 Hct 44.7 % (35.5-45.6) 12/10/19 04:38 MCV 86 fl (84-94) 12/10/19 04:38 MCH 29 pg (28-32) 12/10/19 04:38 MCHC 34 % (32-34) 12/10/19 04:38 RDW 13.9 % (13.2-15.2) 12/10/19 04:38 Plt Count 509 K/mm3 (140-440) H 12/10/19 04:38 Lymph % (Auto) 5.6 % (13.4-35.0) L 12/07/19 05:08 [place] % (Auto) 4.9 % (0.0-7.3) 12/07/19 05:08 Eos % (Auto) 0.0 % (0.0-4.3) 12/07/19 05:08 Baso % (Auto) 0.1 % (0.0-1.8) 12/07/19 05:08 Lymph # 0.8 K/mm3 (1.2-5.4) L 12/07/19 05:08 [place] # 0.7 K/mm3 (0.0-0.8) 12/07/19 05:08 Eos # 0.0 K/mm3 (0.0-0.4) 12/07/19 05:08 Baso # 0.0 K/mm3 (0.0-0.1) 12/07/19 05:08 Add Manual Diff Complete 12/09/19 05:08 Total Counted 100 12/09/19 05:08 Seg Neutrophils % 89.4 % (40.0-70.0) H 12/07/19 05:08 Seg Neuts % (Manual) 71.0 % (40.0-70.0) H 12/09/19 05:08 Band Neutrophils % 0 % 12/09/19 05:08 Lymphocytes % (Manual) 20.0 % (13.4-35.0) 12/09/19 05:08 Reactive Lymphs % (Man) 0 % 12/09/19 05:08 Monocytes % (Manual) 9.0 % (0.0-7.3) H 12/09/19 05:08 Eosinophils % (Manual) 0 % (0.0-4.3) 12/09/19 05:08 Basophils % (Manual) 0 % (0.0-1.8) 12/09/19 05:08 Metamyelocytes % 0 % 12/09/19 05:08 Myelocytes % 0 % 12/09/19 05:08 Promyelocytes % 0 % 12/09/19 05:08 Blast Cells % 0 % 12/09/19 05:08 Nucleated RBC % Not Reportable 12/09/19 05:08 Seg Neutrophils # 13.1 K/mm3 (1.8-7.7) H 12/07/19 05:08 Seg Neutrophils # Man 5.4 K/mm3 (1.8-7.7) 12/09/19 05:08 Band Neutrophils # 0.0 K/mm3 12/09/19 05:08 Lymphocytes # (Manual) 1.5 K/mm3 (1.2-5.4) 12/09/19 05:08 Abs React Lymphs (Man) 0.0 K/mm3 12/09/19 05:08 Monocytes # (Manual) 0.7 K/mm3 (0.0-0.8) 12/09/19 05:08 Eosinophils # (Manual) 0.0 K/mm3 (0.0-0.4) 12/09/19 05:08 Basophils # (Manual) 0.0 K/mm3 (0.0-0.1) 12/09/19 05:08 Metamyelocytes # 0.0 K/mm3 12/09/19 05:08 Myelocytes # 0.0 K/mm3 12/09/19 05:08 Promyelocytes # 0.0 K/mm3 12/09/19 05:08 Blast Cells # 0.0 K/mm3 12/09/19 05:08 WBC Morphology Not Reportable 12/09/19 05:08 Hypersegmented Neuts Not Reportable 12/09/19 05:08 Hyposegmented Neuts Not Reportable 12/09/19 05:08 Hypogranular Neuts Not Reportable 12/09/19 05:08 Smudge Cells Not Reportable 12/09/19 05:08 Toxic Granulation Not Reportable 12/09/19 05:08 Toxic Vacuolation Not Reportable 12/09/19 05:08 Dohle Bodies Not Reportable 12/09/19 05:08 Pelger-Huet Anomaly Not Reportable 12/09/19 05:08 Aline Rods Not Reportable 12/09/19 05:08 Platelet Estimate Consistent w auto 12/09/19 05:08 Clumped Platelets Not Reportable 12/09/19 05:08 Plt Clumps, EDTA Not Reportable 12/09/19 05:08 Large Platelets Few 12/09/19 05:08 Giant Platelets Not Reportable 12/09/19 05:08 Platelet Satelliting Not Reportable 12/09/19 05:08 Plt Morphology Comment Not Reportable 12/09/19 05:08 RBC Morphology Normal 12/09/19 05:08 Dimorphic RBCs Not Reportable 12/09/19 05:08 Polychromasia Not Reportable 12/09/19 05:08 Hypochromasia Not Reportable 12/09/19 05:08 Poikilocytosis Not Reportable 12/09/19 05:08 Anisocytosis Not Reportable 12/09/19 05:08 Microcytosis Not Reportable 12/09/19 05:08 Macrocytosis Not Reportable 12/09/19 05:08 Spherocytes Not Reportable 12/09/19 05:08 Pappenheimer Bodies Not Reportable 12/09/19 05:08 Sickle Cells Not Reportable 12/09/19 05:08 Target Cells Not Reportable 12/09/19 05:08 Tear Drop Cells Not Reportable 12/09/19 05:08 Ovalocytes Not Reportable 12/09/19 05:08 Helmet Cells Not Reportable 12/09/19 05:08 Steen-[place] Bodies Not Reportable 12/09/19 05:08 Coffey Rings Not Reportable 12/09/19 05:08 Richard Cells Not Reportable 12/09/19 05:08 Bite Cells Not Reportable 12/09/19 05:08 Crenated Cell Not Reportable 12/09/19 05:08 Elliptocytes Not Reportable 12/09/19 05:08 Acanthocytes (Spur) Not Reportable 12/09/19 05:08 Rouleaux Not Reportable 12/09/19 05:08 Hemoglobin C Crystals Not Reportable 12/09/19 05:08 Schistocytes Not Reportable 12/09/19 05:08 Malaria parasites Not Reportable 12/09/19 05:08 Jeffy Bodies Not Reportable 12/09/19 05:08 Hem Pathologist Commnt No 07/18/20 05:08 PT 13.0 Sec. (12.2-14.9) 12/06/19 04:53 INR 1.00 (0.87-1.13) 12/06/19 04:53 D-Dimer 481.48 ng/mlDDU (0-234) H 12/09/19 05:08 Sodium 136 mmol/L (137-145) L 12/10/19 04:38 Potassium 4.1 mmol/L (3.6-5.0) 12/10/19 04:38 Chloride 101.1 mmol/L (98-107) 12/10/19 04:38 Carbon Dioxide 24 mmol/L (22-30) 12/10/19 04:38 Anion Gap 15 mmol/L 12/10/19 04:38 BUN 14 mg/dL (9-20) 12/10/19 04:38 Creatinine 0.5 mg/dL (0.8-1.5) L 12/10/19 04:38 Estimated GFR > 60 ml/min 12/10/19 04:38 BUN/Creatinine Ratio 28 % 12/10/19 04:38 Glucose 127 mg/dL (75-100) H 12/10/19 04:38 Lactic Acid 1.10 mmol/L (0.7-2.0) 12/06/19 01:18 Calcium 9.8 mg/dL (8.4-10.2) 12/10/19 04:38 Ferritin 999.3 ng/mL (13.0-400.0) H 12/09/19 05:08 Total Bilirubin 0.30 mg/dL (0.1-1.2) 12/10/19 04:38 AST 52 units/L (5-40) H 12/10/19 04:38 ALT 312 units/L (7-56) H 12/10/19 04:38 Alkaline Phosphatase 90 units/L (35-129) 12/10/19 04:38 Lactate Dehydrogenase 360 units/L (91-180) H 12/09/19 05:08 Total Creatine Kinase 116 units/L (55-170) 12/05/19 20:31 CK-MB (CK-2) < 1.0 ng/mL (0.0-4.0) 12/05/19 20:31 CK-MB (CK-2) Rel Index 0.8 (0-4) 12/05/19 20:31 Troponin T < 0.010 ng/mL (0.00-0.029) 12/05/19 20:31 C-Reactive Protein 2.60 mg/dL (0.00-1.30) H 12/09/19 05:08 Total Protein 7.0 g/dL (6.3-8.2) 12/10/19 04:38 Albumin 3.2 g/dL (3.9-5) L 12/10/19 04:38 Albumin/Globulin Ratio 0.8 % 12/10/19 04:38 Procalcitonin 0.22 ng/mL (<0.15) 12/05/19 20:31 Urine Color Yellow (Yellow) 12/05/19 20:58 Urine Turbidity Clear (Clear) 12/05/19 20:58 Urine pH 8.0 (5.0-7.0) H 12/05/19 20:58 Ur Specific [place] 1.014 (1.003-1.030) 12/05/19 20:58 Urine Protein 30 mg/dl mg/dL (Negative) 12/05/19 20:58 Urine Glucose (UA) Neg mg/dL (Negative) 12/05/19 20:58 Urine Ketones Neg mg/dL (Negative) 12/05/19 20:58 Urine Blood Neg (Negative) 12/05/19 20:58 Urine Nitrite Neg (Negative) 12/05/19 20:58 Urine Bilirubin Neg (Negative) 12/05/19 20:58 Urine Urobilinogen < 2.0 mg/dL (<2.0) 12/05/19 20:58 Ur Leukocyte Esterase Neg (Negative) 12/05/19 20:58 Urine WBC (Auto) 1.0 /HPF (0.0-6.0) 12/05/19 20:58 Urine RBC (Auto) 2.0 /HPF (0.0-6.0) 12/05/19 20:58 Urine Mucus Few /HPF 12/05/19 20:58 Coronavirus (PCR) Positive (Negative) A 12/05/19 Unknown Blood Type O POSITIVE 12/11/19 13:19 Antibody Screen Negative 12/11/19 13:19 Microbiology: Microbiology 12/05/19 20:31 Peripheral/Venous Blood Culture - Final NO GROWTH AFTER 5 DAYS 12/05/19 20:35 Peripheral/Venous Blood Culture - Final NO GROWTH AFTER 5 DAYS Hill/IV: Voiding Method Toilet IV Catheter Type [Left INT / Saline Lock Antecubital] Active Medications - Current Medications Current Medications: Generic Name Dose Route Start Last Admin Trade Name Freq PRN Reason Stop Dose Admin Acetaminophen 650 mg 12/05/19 23:08 Tylenol PO Q4H PRN Pain MILD(1-3)/Fever >100.5/WILSON Dexamethasone 6 mg 12/06/19 10:00 12/11/19 09:12 Decadron PO 12/15/19 10:01 6 mg DAILY IVÁN Administration Heparin Sodium (Porcine) 5,000 unit 12/06/19 06:00 12/11/19 13:09 Heparin SUB-Q 5,000 unit Q8HR IVÁN Administration Magnesium Hydroxide 30 ml 12/05/19 23:08 Milk Of Magnesia PO Q4H PRN Constipation Ondansetron HCl 4 mg 12/05/19 23:08 Zofran IV Q8H PRN Nausea And Vomiting Sodium Chloride 10 ml 12/06/19 10:00 12/11/19 09:13 Sodium Chloride Flush Syringe 10 Ml IV 10 ml BID IVÁN Administration Sodium Chloride 10 ml 12/05/19 23:08 Sodium Chloride Flush Syringe 10 Ml IV PRN PRN LINE FLUSH
[2019-12-12 05:29] LABS: Hematocrit 45.1 % (35.5-45.6); Hemoglobin 15.2 gm/dl (11.8-15.2); Mean Corpuscular HGB Conc 34 % (32-34); Mean Corpuscular Volume 86 fl (84-94); Platelet Count 556 K/mm3 (140-440); Red Blood Count 5.27 M/mm3 (3.65-5.03); Red Cell Distribution Width 13.5 % (13.2-15.2)
[2019-12-12] MEDS: HEPARIN 5,000 UNIT/1 ML VIAL SUB-Q SCH ×2 (05:36→14:04)
[2019-12-12 05:51] LABS: Alanine Aminotransferase 169 units/L (7-56); Albumin 3.3 g/dL (3.9-5); BUN/Creatinine Ratio 25; Blood Urea Nitrogen 15 mg/dL (9-20); Calcium 10.1 mg/dL (8.4-10.2); Hemolysis Index 7
--- NOTE | 2019-12-12 08:58 | Progress Note ---
Assessment and Plan Assessment and plan: Bilateral pneumonia Chest x-ray reviewed Procalcitonin in the normal range Discontinue IV antibiotics Acute hypoxic respiratory failure Continue oxygen via nasal cannula Patient initially was on 8 L oxygen via nasal cannula He gets severely dyspneic and hypoxic with minimal effort Discussed with ID Dr. Keller over the phone Status post 1 dose of Actemra at 8 mg/kg pulmonary consult note reviewed COVID-19 pneumonia Continue isolation precautions All inflammatory markers reviewed and are trending up Continue Decadron Brief ID note reviewed Started on Remdesivir Leukocytosis Likely reactive Monitor CBC Pro calcitonin is normal Elevated LFTs Likely secondary to COVID 19 virus Hyponatremia Improved Hyperglycemia Likely secondary to IV Decadron 12/05 Patient is awake alert and oriented Complaints of shortness of breath with minimal effort Complains of dry cough He denies any fever or chills Lab results reviewed COVID-19 test is positive 12/06 Patient is awake and alert He is moderately dyspneic by taking 1 or 2 steps and gets hypoxic with minimal effort He is on 6 L oxygen via nasal cannula Lab results reviewed Discussed with ID Dr. Keller over the phone 12/07 Patient is alert and oriented and feels better at rest but gets short of breath and hypoxic with mild effort He denies any cough, fever, chills, chest pain or abdominal pain He is now on 8 L oxygen via nasal cannula Lab results reviewed 12/08: Down to 6 L of oxygen via nasal cannula. Pulmonary input is noted. ID input is noted. Continue steroids today is day 3 out of 10. On Remdesivir, got Actemra 12/07/19. Continue to monitor inflammatory markers 12/09: Wean oxygen if patient is able to tolerate. Continue current therapy. Continue to wean oxygen aggressively. 12/10; continues to clinically improve. Down to 4 L of oxygen. Continue current therapy at this time. 12/12/2019. Continue to wean oxygen as tolerated. Patient still requiring 4 L O2. Continue dexamethasone 6 mg daily. History Interval history: No new issues overnight. Hospitalist Physical - Constitutional Vitals: Temp Pulse Resp BP Pulse Ox 97.7 F 57 L 18 112/71 94 12/12/19 04:29 12/12/19 04:29 12/12/19 04:29 12/12/19 04:29 12/12/19 04:29 General appearance: Present: no acute distress, well-nourished - EENT Eyes: Present: PERRL, EOM intact ENT: hearing intact, clear oral mucosa, dentition normal - Neck Neck: Present: supple, normal ROM - Respiratory Respiratory effort: normal Respiratory: bilateral: CTA - Cardiovascular Rhythm: regular Heart Sounds: Present: S1 & S2. Absent: gallop, rub - Extremities Extremities: no ischemia, No edema, Full ROM - Abdominal General gastrointestinal: soft, non-tender, non-distended, normal bowel sounds - Integumentary Integumentary: Present: clear, warm, dry - Neurologic Neurologic: CNII-XII intact, moves all extremities HEART Score - HEART Score Troponin: Troponin T < 0.010 ng/mL (0.00-0.029) 12/05/19 20:31 Results - Labs CBC & Chem 7: 12/12/19 04:41 12/12/19 04:41 Labs: Laboratory Last Values WBC 9.8 K/mm3 (4.5-11.0) 12/12/19 04:41 RBC 5.27 M/mm3 (3.65-5.03) H 12/12/19 04:41 Hgb 15.2 gm/dl (11.8-15.2) 12/12/19 04:41 Hct 45.1 % (35.5-45.6) 12/12/19 04:41 MCV 86 fl (84-94) 12/12/19 04:41 MCH 29 pg (28-32) 12/12/19 04:41 MCHC 34 % (32-34) 12/12/19 04:41 RDW 13.5 % (13.2-15.2) 12/12/19 04:41 Plt Count 556 K/mm3 (140-440) H 12/12/19 04:41 Lymph % (Auto) 5.6 % (13.4-35.0) L 12/07/19 05:08 [place] % (Auto) 4.9 % (0.0-7.3) 12/07/19 05:08 Eos % (Auto) 0.0 % (0.0-4.3) 12/07/19 05:08 Baso % (Auto) 0.1 % (0.0-1.8) 12/07/19 05:08 Lymph # 0.8 K/mm3 (1.2-5.4) L 12/07/19 05:08 [place] # 0.7 K/mm3 (0.0-0.8) 12/07/19 05:08 Eos # 0.0 K/mm3 (0.0-0.4) 12/07/19 05:08 Baso # 0.0 K/mm3 (0.0-0.1) 12/07/19 05:08 Add Manual Diff Complete 12/09/19 05:08 Total Counted 100 12/09/19 05:08 Seg Neutrophils % 89.4 % (40.0-70.0) H 12/07/19 05:08 Seg Neuts % (Manual) 71.0 % (40.0-70.0) H 12/09/19 05:08 Band Neutrophils % 0 % 12/09/19 05:08 Lymphocytes % (Manual) 20.0 % (13.4-35.0) 12/09/19 05:08 Reactive Lymphs % (Man) 0 % 12/09/19 05:08 Monocytes % (Manual) 9.0 % (0.0-7.3) H 12/09/19 05:08 Eosinophils % (Manual) 0 % (0.0-4.3) 12/09/19 05:08 Basophils % (Manual) 0 % (0.0-1.8) 12/09/19 05:08 Metamyelocytes % 0 % 12/09/19 05:08 Myelocytes % 0 % 12/09/19 05:08 Promyelocytes % 0 % 12/09/19 05:08 Blast Cells % 0 % 12/09/19 05:08 Nucleated RBC % Not Reportable 12/09/19 05:08 Seg Neutrophils # 13.1 K/mm3 (1.8-7.7) H 12/07/19 05:08 Seg Neutrophils # Man 5.4 K/mm3 (1.8-7.7) 12/09/19 05:08 Band Neutrophils # 0.0 K/mm3 12/09/19 05:08 Lymphocytes # (Manual) 1.5 K/mm3 (1.2-5.4) 12/09/19 05:08 Abs React Lymphs (Man) 0.0 K/mm3 12/09/19 05:08 Monocytes # (Manual) 0.7 K/mm3 (0.0-0.8) 12/09/19 05:08 Eosinophils # (Manual) 0.0 K/mm3 (0.0-0.4) 12/09/19 05:08 Basophils # (Manual) 0.0 K/mm3 (0.0-0.1) 12/09/19 05:08 Metamyelocytes # 0.0 K/mm3 12/09/19 05:08 Myelocytes # 0.0 K/mm3 12/09/19 05:08 Promyelocytes # 0.0 K/mm3 12/09/19 05:08 Blast Cells # 0.0 K/mm3 12/09/19 05:08 WBC Morphology Not Reportable 12/09/19 05:08 Hypersegmented Neuts Not Reportable 12/09/19 05:08 Hyposegmented Neuts Not Reportable 12/09/19 05:08 Hypogranular Neuts Not Reportable 12/09/19 05:08 Smudge Cells Not Reportable 12/09/19 05:08 Toxic Granulation Not Reportable 12/09/19 05:08 Toxic Vacuolation Not Reportable 12/09/19 05:08 Dohle Bodies Not Reportable 12/09/19 05:08 Pelger-Huet Anomaly Not Reportable 12/09/19 05:08 Aline Rods Not Reportable 12/09/19 05:08 Platelet Estimate Consistent w auto 12/09/19 05:08 Clumped Platelets Not Reportable 12/09/19 05:08 Plt Clumps, EDTA Not Reportable 12/09/19 05:08 Large Platelets Few 12/09/19 05:08 Giant Platelets Not Reportable 12/09/19 05:08 Platelet Satelliting Not Reportable 12/09/19 05:08 Plt Morphology Comment Not Reportable 12/09/19 05:08 RBC Morphology Normal 12/09/19 05:08 Dimorphic RBCs Not Reportable 12/09/19 05:08 Polychromasia Not Reportable 12/09/19 05:08 Hypochromasia Not Reportable 12/09/19 05:08 Poikilocytosis Not Reportable 12/09/19 05:08 Anisocytosis Not Reportable 12/09/19 05:08 Microcytosis Not Reportable 12/09/19 05:08 Macrocytosis Not Reportable 12/09/19 05:08 Spherocytes Not Reportable 12/09/19 05:08 Pappenheimer Bodies Not Reportable 12/09/19 05:08 Sickle Cells Not Reportable 12/09/19 05:08 Target Cells Not Reportable 12/09/19 05:08 Tear Drop Cells Not Reportable 12/09/19 05:08 Ovalocytes Not Reportable 12/09/19 05:08 Helmet Cells Not Reportable 12/09/19 05:08 Steen-Natural Steps Bodies Not Reportable 12/09/19 05:08 [place] Rings Not Reportable 12/09/19 05:08 [place] Cells Not Reportable 12/09/19 05:08 Bite Cells Not Reportable 12/09/19 05:08 Crenated Cell Not Reportable 12/09/19 05:08 Elliptocytes Not Reportable 12/09/19 05:08 Acanthocytes (Spur) Not Reportable 12/09/19 05:08 Rouleaux Not Reportable 12/09/19 05:08 Hemoglobin C Crystals Not Reportable 12/09/19 05:08 Schistocytes Not Reportable 12/09/19 05:08 Malaria parasites Not Reportable 12/09/19 05:08 Jeffy Bodies Not Reportable 12/09/19 05:08 Hem Pathologist Commnt No 12/09/19 05:08 PT 13.0 Sec. (12.2-14.9) 12/06/19 04:53 INR 1.00 (0.87-1.13) 12/06/19 04:53 D-Dimer 481.48 ng/mlDDU (0-234) H 12/09/19 05:08 Sodium 136 mmol/L (137-145) L 12/12/19 04:41 Potassium 4.2 mmol/L (3.6-5.0) 12/12/19 04:41 Chloride 101.2 mmol/L (98-107) 12/12/19 04:41 Carbon Dioxide 25 mmol/L (22-30) 12/12/19 04:41 Anion Gap 14 mmol/L 12/12/19 04:41 BUN 15 mg/dL (9-20) 12/12/19 04:41 Creatinine 0.6 mg/dL (0.8-1.5) L 12/12/19 04:41 Estimated GFR > 60 ml/min 12/12/19 04:41 BUN/Creatinine Ratio 25 % 12/12/19 04:41 Glucose 121 mg/dL (75-100) H 12/12/19 04:41 Lactic Acid 1.10 mmol/L (0.7-2.0) 12/06/19 01:18 Calcium 10.1 mg/dL (8.4-10.2) 12/12/19 04:41 Ferritin 999.3 ng/mL (13.0-400.0) H 12/09/19 05:08 Total Bilirubin 0.40 mg/dL (0.1-1.2) 12/12/19 04:41 AST 31 units/L (5-40) 12/12/19 04:41 ALT 169 units/L (7-56) H 12/12/19 04:41 Alkaline Phosphatase 82 units/L (35-129) 12/12/19 04:41 Lactate Dehydrogenase 360 units/L (91-180) H 12/09/19 05:08 Total Creatine Kinase 116 units/L (55-170) 12/05/19 20:31 CK-MB (CK-2) < 1.0 ng/mL (0.0-4.0) 12/05/19 20:31 CK-MB (CK-2) Rel Index 0.8 (0-4) 12/05/19 20:31 Troponin T < 0.010 ng/mL (0.00-0.029) 12/05/19 20:31 C-Reactive Protein 2.60 mg/dL (0.00-1.30) H 12/09/19 05:08 Total Protein 6.4 g/dL (6.3-8.2) 12/12/19 04:41 Albumin 3.3 g/dL (3.9-5) L 12/12/19 04:41 Albumin/Globulin Ratio 1.1 % 12/12/19 04:41 Procalcitonin 0.22 ng/mL (<0.15) 12/05/19 20:31 Urine Color Yellow (Yellow) 12/05/19 20:58 Urine Turbidity Clear (Clear) 12/05/19 20:58 Urine pH 8.0 (5.0-7.0) H 12/05/19 20:58 Ur Specific [place] 1.014 (1.003-1.030) 12/05/19 20:58 Urine Protein 30 mg/dl mg/dL (Negative) 12/05/19 20:58 Urine Glucose (UA) Neg mg/dL (Negative) 12/05/19 20:58 Urine Ketones Neg mg/dL (Negative) 12/05/19 20:58 Urine Blood Neg (Negative) 12/05/19 20:58 Urine Nitrite Neg (Negative) 12/05/19 20:58 Urine Bilirubin Neg (Negative) 12/05/19 20:58 Urine Urobilinogen < 2.0 mg/dL (<2.0) 12/05/19 20:58 Ur Leukocyte Esterase Neg (Negative) 12/05/19 20:58 Urine WBC (Auto) 1.0 /HPF (0.0-6.0) 12/05/19 20:58 Urine RBC (Auto) 2.0 /HPF (0.0-6.0) 12/05/19 20:58 Urine Mucus Few /HPF 12/05/19 20:58 Coronavirus (PCR) Positive (Negative) A 12/05/19 Unknown Blood Type O POSITIVE 12/11/19 13:19 Antibody Screen Negative 12/11/19 13:19 Hill/IV: Voiding Method Toilet IV Catheter Type [Left INT / Saline Lock Antecubital] Active Medications - Current Medications Current Medications: Generic Name Dose Route Start Last Admin Trade Name Freq PRN Reason Stop Dose Admin Acetaminophen 650 mg 12/05/19 23:08 Tylenol PO Q4H PRN Pain MILD(1-3)/Fever >100.5/WILSON Dexamethasone 6 mg 12/06/19 10:00 12/11/19 09:12 Decadron PO 12/15/19 10:01 6 mg DAILY IVÁN Administration Heparin Sodium (Porcine) 5,000 unit 12/06/19 06:00 12/12/19 05:36 Heparin SUB-Q 5,000 unit Q8HR IVÁN Administration Magnesium Hydroxide 30 ml 12/05/19 23:08 Milk Of Magnesia PO Q4H PRN Constipation Ondansetron HCl 4 mg 12/05/19 23:08 Zofran IV Q8H PRN Nausea And Vomiting Sodium Chloride 10 ml 12/06/19 10:00 12/11/19 21:45 Sodium Chloride Flush Syringe 10 Ml IV 10 ml BID IVÁN Administration Sodium Chloride 10 ml 12/05/19 23:08 Sodium Chloride Flush Syringe 10 Ml IV PRN PRN LINE FLUSH
--- NOTE | 2019-12-12 09:10 | Progress Note ---
Assessment and Plan 44 y/o male with acute respiratory failure secondary to COVID 19 1. Prone patient as often as possible during the day and sleep prone at night. No documentation of this. 2. Continue steroids, day of , will hold on increasing for now. Will ask RT to wean oxygen more aggressively. Now down to 4 with a sat of 96. 3. Finished Remdesivir, and Actemra 4. Wean FiO2 for sats >88%, currently on 4 liters NC. new order placed to RT. 5. Please do not give any additional IVF's unless related to therapy like piggybacks for Remdesivir 6. No lasix today. Will reassess tomorrow. Will continue to follow along with you. Subjective Date of service: 12/12/19 Interval history: No acute events. Still on 4 liters with sats documented in the mid 's. Objective Vital Signs - 12hr 12/11/19 12/11/19 12/11/19 21:44 21:56 22:00 Temperature 98.7 F Pulse Rate 72 Respiratory 18 18 Rate Blood Pressure 121/78 O2 Sat by Pulse 97 95 Oximetry 12/12/19 04:29 Temperature 97.7 F Pulse Rate 57 L Respiratory 18 Rate Blood Pressure 112/71 O2 Sat by Pulse 94 Oximetry CBC and BMP: 12/12/19 04:41 12/12/19 04:41 ABG, PT/INR, D-dimer: PT/INR, D-dimer PT 13.0 Sec. (12.2-14.9) 12/06/19 04:53 INR 1.00 (0.87-1.13) 12/06/19 04:53 D-Dimer 481.48 ng/mlDDU (0-234) H 12/09/19 05:08 Abnormal lab findings: Abnormal Labs 12/05/19 12/05/19 12/05/19 20:31 20:31 20:31 WBC 14.2 H RBC Plt Count Lymph % (Auto) Lymph # Seg Neutrophils % Seg Neuts % (Manual) 89.0 H Lymphocytes % (Manual) 7.0 L Monocytes % (Manual) Seg Neutrophils # Seg Neutrophils # Man 12.6 H Lymphocytes # (Manual) 1.0 L D-Dimer 295.04 H Sodium 131 L Chloride 96.1 L BUN 6 L Creatinine 0.6 L Glucose 126 H Ferritin AST 74 H ALT 90 H Lactate Dehydrogenase C-Reactive Protein Albumin 3.4 L Urine pH Coronavirus (PCR) 12/05/19 12/05/19 12/05/19 20:31 20:31 20:58 WBC RBC Plt Count Lymph % (Auto) Lymph # Seg Neutrophils % Seg Neuts % (Manual) Lymphocytes % (Manual) Monocytes % (Manual) Seg Neutrophils # Seg Neutrophils # Man Lymphocytes # (Manual) D-Dimer Sodium Chloride BUN Creatinine Glucose 128 H Ferritin 887.8 H AST ALT Lactate Dehydrogenase 408 H C-Reactive Protein 23.90 H Albumin Urine pH 8.0 H Coronavirus (PCR) 12/05/19 12/06/19 12/06/19 Unknown 04:53 04:53 WBC 13.8 H RBC Plt Count Lymph % (Auto) Lymph # Seg Neutrophils % Seg Neuts % (Manual) 84.0 H Lymphocytes % (Manual) 5.0 L Monocytes % (Manual) Seg Neutrophils # Seg Neutrophils # Man 11.6 H Lymphocytes # (Manual) 0.7 L D-Dimer Sodium Chloride BUN 8 L Creatinine 0.6 L Glucose 160 H Ferritin AST ALT Lactate Dehydrogenase C-Reactive Protein Albumin Urine pH Coronavirus (PCR) Positive A 12/07/19 12/07/19 12/07/19 05:08 05:08 05:08 WBC 14.7 H RBC Plt Count Lymph % (Auto) 5.6 L Lymph # 0.8 L Seg Neutrophils % 89.4 H Seg Neuts % (Manual) Lymphocytes % (Manual) Monocytes % (Manual) Seg Neutrophils # 13.1 H Seg Neutrophils # Man Lymphocytes # (Manual) D-Dimer 373.63 H Sodium Chloride BUN Creatinine Glucose Ferritin 1223.0 H AST ALT Lactate Dehydrogenase C-Reactive Protein Albumin Urine pH Coronavirus (PCR) 12/07/19 12/09/19 12/09/19 05:08 05:08 05:08 WBC RBC Plt Count Lymph % (Auto) Lymph # Seg Neutrophils % Seg Neuts % (Manual) 71.0 H Lymphocytes % (Manual) Monocytes % (Manual) 9.0 H Seg Neutrophils # Seg Neutrophils # Man Lymphocytes # (Manual) D-Dimer 481.48 H Sodium Chloride BUN Creatinine 0.5 L Glucose 145 H Ferritin AST 115 H ALT 135 H Lactate Dehydrogenase 452 H C-Reactive Protein Albumin 3.4 L Urine pH Coronavirus (PCR) 12/09/19 12/09/19 12/10/19 05:08 05:08 04:38 WBC RBC 5.20 H Plt Count 509 H Lymph % (Auto) Lymph # Seg Neutrophils % Seg Neuts % (Manual) Lymphocytes % (Manual) Monocytes % (Manual) Seg Neutrophils # Seg Neutrophils # Man Lymphocytes # (Manual) D-Dimer Sodium Chloride BUN Creatinine 0.5 L Glucose 138 H Ferritin 999.3 H AST 182 H ALT 461 H Lactate Dehydrogenase 360 H C-Reactive Protein 2.60 H Albumin 3.1 L Urine pH Coronavirus (PCR) 12/10/19 12/12/19 12/12/19 04:38 04:41 04:41 WBC RBC 5.27 H Plt Count 556 H Lymph % (Auto) Lymph # Seg Neutrophils % Seg Neuts % (Manual) Lymphocytes % (Manual) Monocytes % (Manual) Seg Neutrophils # Seg Neutrophils # Man Lymphocytes # (Manual) D-Dimer Sodium 136 L 136 L Chloride BUN Creatinine 0.5 L 0.6 L Glucose 127 H 121 H Ferritin AST 52 H ALT 312 H 169 H Lactate Dehydrogenase C-Reactive Protein Albumin 3.2 L 3.3 L Urine pH Coronavirus (PCR)
[2019-12-12] MEDS: DEXAMETHASONE 4 MG TAB PO SCH (10:38)
--- NOTE | 2019-12-12 14:46 | Progress Note ---
Assessment and Plan Cultures: Blood culture no growth today Assessment: 44-year-old male with no significant past medical history admitted on 12/05/2019 due to a week history of cough and shortness of breath associated with generalized malaise, body aches and fever: #Severe sepsis: likely due to bilateral pneumonia. #Severe COVID pneumonia: Patient presented with a week of symptoms, chest x-ray with diffuse bilateral infiltrates. Admission O2 sats 93% on room air. Inflammatory markers are elevated - D-dimer 295 1 up to 481. Ferritin 887. LDH 408. CRP 23. 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 #Acute hypoxemic respiratory failure: Currently on 2 L nasal cannula oxygen sats 91% #Elevated LFTs: from COVID Recommendations: Continue dexamethasone 6 mg IV/PO daily for 10 days Completed Remdesivir 200 mg IV q day x 1 day followed by 100 mg IV q day x 4 days S/p Tocilizumab 8 mg/kg IV x 1 on 12/07/2019 Obtain daily inflammatory markers - ferritin, Ddimer, CRP, LDH Continue prophylactic anticoagulation Follow-up IL-6 level We will follow Debra Lawrence MD [facility] ([facility]) M: [phone] O: [phone] F: [phone] Subjective Date of service: 12/12/19 Interval history: Afebrile, stable on 2 L nasal cannula Objective - Exam Narrative Exam: Physical exam deferred due to PPE conservation strategy. Please refer to our [facility] team's note. - Constitutional Vitals: Vital Signs Temp Pulse Resp BP Pulse Ox 98.5 F 66 19 112/70 91 12/12/19 11:52 12/12/19 11:52 12/12/19 11:52 12/12/19 11:52 12/12/19 11:52 Temperature -Last 24 Hours Temperature 98.5 F Temperature 97.7 F Temperature 98.7 F Temperature 98.6 F - Labs CBC & Chem 7: 12/12/19 04:41 12/12/19 04:41 Labs: Abnormal lab results 12/12/19 12/12/19 Range/Units 04:41 04:41 RBC 5.27 H (3.65-5.03) M/mm3 Plt Count 556 H (140-440) K/mm3 Sodium 136 L (137-145) mmol/L Creatinine 0.6 L (0.8-1.5) mg/dL Glucose 121 H (75-100) mg/dL ALT 169 H (7-56) units/L Albumin 3.3 L (3.9-5) g/dL
[2019-12-13] MEDS: HEPARIN 5,000 UNIT/1 ML VIAL SUB-Q SCH ×3 (00:52→15:06)
--- NOTE | 2019-12-13 08:00 | Progress Note ---
Assessment and Plan 44 y/o male with acute respiratory failure secondary to COVID 19 1. Prone patient as often as possible during the day and sleep prone at night. No documentation of this. Please continue if doing despite improvement in oxygen requirement. 2. Continue steroids, day of , will hold on increasing for now. Room air exercise sats per nurse note yesterday are acceptable. 3. Finished Remdesivir, and Actemra 4. Room air sats acceptable. 5. Please do not give any additional IVF's unless related to therapy like piggybacks for Remdesivir 6. Consider discharge to home as early as today. Steroids are already PO, and he would need 2 more days of this dose. Will continue to follow along with you. Subjective Date of service: 12/13/19 Interval history: Patient down to 2 liters NC as of last night but per nursing notes, ambulatory sat was 90 on room air yesterday which does not qualify him for O2. Vitals stable, no fever. Objective Vital Signs - 12hr 12/12/19 12/12/19 12/13/19 21:09 22:52 04:42 Temperature 98.0 F 97.5 F L Pulse Rate 55 L 49 L Respiratory 18 17 Rate Blood Pressure 106/71 99/67 O2 Sat by Pulse 95 98 97 Oximetry CBC and BMP: 12/12/19 04:41 12/12/19 04:41 ABG, PT/INR, D-dimer: PT/INR, D-dimer PT 13.0 Sec. (12.2-14.9) 12/06/19 04:53 INR 1.00 (0.87-1.13) 12/06/19 04:53 D-Dimer 481.48 ng/mlDDU (0-234) H 12/09/19 05:08 Abnormal lab findings: Abnormal Labs 12/05/19 12/05/19 12/05/19 20:31 20:31 20:31 WBC 14.2 H RBC Plt Count Lymph % (Auto) Lymph # Seg Neutrophils % Seg Neuts % (Manual) 89.0 H Lymphocytes % (Manual) 7.0 L Monocytes % (Manual) Seg Neutrophils # Seg Neutrophils # Man 12.6 H Lymphocytes # (Manual) 1.0 L D-Dimer 295.04 H Sodium 131 L Chloride 96.1 L BUN 6 L Creatinine 0.6 L Glucose 126 H Ferritin AST 74 H ALT 90 H Lactate Dehydrogenase C-Reactive Protein Albumin 3.4 L Urine pH Coronavirus (PCR) 12/05/19 12/05/19 12/05/19 20:31 20:31 20:58 WBC RBC Plt Count Lymph % (Auto) Lymph # Seg Neutrophils % Seg Neuts % (Manual) Lymphocytes % (Manual) Monocytes % (Manual) Seg Neutrophils # Seg Neutrophils # Man Lymphocytes # (Manual) D-Dimer Sodium Chloride BUN Creatinine Glucose 128 H Ferritin 887.8 H AST ALT Lactate Dehydrogenase 408 H C-Reactive Protein 23.90 H Albumin Urine pH 8.0 H Coronavirus (PCR) 12/05/19 12/06/19 12/06/19 Unknown 04:53 04:53 WBC 13.8 H RBC Plt Count Lymph % (Auto) Lymph # Seg Neutrophils % Seg Neuts % (Manual) 84.0 H Lymphocytes % (Manual) 5.0 L Monocytes % (Manual) Seg Neutrophils # Seg Neutrophils # Man 11.6 H Lymphocytes # (Manual) 0.7 L D-Dimer Sodium Chloride BUN 8 L Creatinine 0.6 L Glucose 160 H Ferritin AST ALT Lactate Dehydrogenase C-Reactive Protein Albumin Urine pH Coronavirus (PCR) Positive A 12/07/19 12/07/19 12/07/19 05:08 05:08 05:08 WBC 14.7 H RBC Plt Count Lymph % (Auto) 5.6 L Lymph # 0.8 L Seg Neutrophils % 89.4 H Seg Neuts % (Manual) Lymphocytes % (Manual) Monocytes % (Manual) Seg Neutrophils # 13.1 H Seg Neutrophils # Man Lymphocytes # (Manual) D-Dimer 373.63 H Sodium Chloride BUN Creatinine Glucose Ferritin 1223.0 H AST ALT Lactate Dehydrogenase C-Reactive Protein Albumin Urine pH Coronavirus (PCR) 12/07/19 12/09/19 12/09/19 05:08 05:08 05:08 WBC RBC Plt Count Lymph % (Auto) Lymph # Seg Neutrophils % Seg Neuts % (Manual) 71.0 H Lymphocytes % (Manual) Monocytes % (Manual) 9.0 H Seg Neutrophils # Seg Neutrophils # Man Lymphocytes # (Manual) D-Dimer 481.48 H Sodium Chloride BUN Creatinine 0.5 L Glucose 145 H Ferritin AST 115 H ALT 135 H Lactate Dehydrogenase 452 H C-Reactive Protein Albumin 3.4 L Urine pH Coronavirus (PCR) 12/09/19 12/09/19 12/10/19 05:08 05:08 04:38 WBC RBC 5.20 H Plt Count 509 H Lymph % (Auto) Lymph # Seg Neutrophils % Seg Neuts % (Manual) Lymphocytes % (Manual) Monocytes % (Manual) Seg Neutrophils # Seg Neutrophils # Man Lymphocytes # (Manual) D-Dimer Sodium Chloride BUN Creatinine 0.5 L Glucose 138 H Ferritin 999.3 H AST 182 H ALT 461 H Lactate Dehydrogenase 360 H C-Reactive Protein 2.60 H Albumin 3.1 L Urine pH Coronavirus (PCR) 12/10/19 12/12/19 12/12/19 04:38 04:41 04:41 WBC RBC 5.27 H Plt Count 556 H Lymph % (Auto) Lymph # Seg Neutrophils % Seg Neuts % (Manual) Lymphocytes % (Manual) Monocytes % (Manual) Seg Neutrophils # Seg Neutrophils # Man Lymphocytes # (Manual) D-Dimer Sodium 136 L 136 L Chloride BUN Creatinine 0.5 L 0.6 L Glucose 127 H 121 H Ferritin AST 52 H ALT 312 H 169 H Lactate Dehydrogenase C-Reactive Protein Albumin 3.2 L 3.3 L Urine pH Coronavirus (PCR)
[2019-12-13] MEDS: DEXAMETHASONE 4 MG TAB PO SCH (10:16)
[2019-12-13 13:06] VITALS: BP 114/67
--- NOTE | 2019-12-13 14:02 | Progress Note ---
Assessment and Plan Assessment and plan: 44 year old male admitted with COVID (+) PNA. - Patient Problems (1) Pneumonia due to COVID-19 virus Current Visit: Yes Status: Acute Plan to address problem: - ID consult - PO Dexamethasone day 11/30 - Walking sp02 - s/p Remdesivir, and Actemra - Per ID: Consider discharge to home as early as today. Steroids are already PO, and he would need 2 more days of this dose. - Ambulation TID and tolerated - Pulmonary hygiene (2) Hypoxia Current Visit: Yes Status: Acute Plan to address problem: - Supplemental ocygenation - Prone to sleep - Pulmonary hygiene (3) DVT prophylaxis Current Visit: Yes Status: Acute Plan to address problem: - Sub q heparin -SCDs while in bed (4) Full code status Current Visit: Yes Status: Acute History Interval history: 44 year old male with no significant past medical history presenting to the emergency room complaining of shortness of breath which has been ongoing for about a week, cough, generalized body aches and pain, and low grade fevers. He was admitted for bilateral PNA and found to be CVOID (+). This morning he is on NC 3L and sitting in his chair. He states he feels much better and ambulates and does exercise as much as possible in room. 12/05: Complaints of shortness of breath with minimal effort and dry cough. COVID-19 test is positive 12/06: He is moderately dyspneic by taking 1 or 2 steps and gets hypoxic with minimal effort. He is on 6 L oxygen via nasal cannula. Discussed with ID Dr. Keller over the phone 12/07: Patient is alert and oriented and feels better at rest but gets short of breath and hypoxic with mild effort. He is now on 8 L oxygen via nasal cannula 12/08: Down to 6 L of oxygen via nasal cannula. Continue steroids today is day 3 out of 10. On Remdesivir, got Actemra 12/07/19. 12/09: Wean oxygen if patient is able to tolerate. Continue current therapy. Continue to wean oxygen aggressively. 12/10: continues to clinically improve. Down to 4 L of oxygen. Continue current therapy at this time. 12/12/2019. Continue to wean oxygen as tolerated. Patient still requiring 4 L O2. Continue dexamethasone 6 mg daily. Hospitalist Physical - Constitutional Vitals: Temp Pulse Resp BP Pulse Ox 98.4 F 62 20 114/67 94 12/13/19 11:58 12/13/19 11:58 12/13/19 11:58 12/13/19 11:58 12/13/19 11:58 General appearance: Present: no acute distress, well-nourished HEART Score - HEART Score Troponin: Troponin T < 0.010 ng/mL (0.00-0.029) 12/05/19 20:31 Results - Labs CBC & Chem 7: 12/12/19 04:41 12/12/19 04:41 Labs: Laboratory Last Values WBC 9.8 K/mm3 (4.5-11.0) 12/12/19 04:41 RBC 5.27 M/mm3 (3.65-5.03) H 12/12/19 04:41 Hgb 15.2 gm/dl (11.8-15.2) 12/12/19 04:41 Hct 45.1 % (35.5-45.6) 12/12/19 04:41 MCV 86 fl (84-94) 12/12/19 04:41 MCH 29 pg (28-32) 12/12/19 04:41 MCHC 34 % (32-34) 12/12/19 04:41 RDW 13.5 % (13.2-15.2) 12/12/19 04:41 Plt Count 556 K/mm3 (140-440) H 12/12/19 04:41 Lymph % (Auto) 5.6 % (13.4-35.0) L 12/07/19 05:08 Bracken % (Auto) 4.9 % (0.0-7.3) 12/07/19 05:08 Eos % (Auto) 0.0 % (0.0-4.3) 12/07/19 05:08 Baso % (Auto) 0.1 % (0.0-1.8) 12/07/19 05:08 Lymph # 0.8 K/mm3 (1.2-5.4) L 12/07/19 05:08 Bracken # 0.7 K/mm3 (0.0-0.8) 12/07/19 05:08 Eos # 0.0 K/mm3 (0.0-0.4) 12/07/19 05:08 Baso # 0.0 K/mm3 (0.0-0.1) 12/07/19 05:08 Add Manual Diff Complete 12/09/19 05:08 Total Counted 100 12/09/19 05:08 Seg Neutrophils % 89.4 % (40.0-70.0) H 12/07/19 05:08 Seg Neuts % (Manual) 71.0 % (40.0-70.0) H 12/09/19 05:08 Band Neutrophils % 0 % 12/09/19 05:08 Lymphocytes % (Manual) 20.0 % (13.4-35.0) 12/09/19 05:08 Reactive Lymphs % (Man) 0 % 12/09/19 05:08 Monocytes % (Manual) 9.0 % (0.0-7.3) H 12/09/19 05:08 Eosinophils % (Manual) 0 % (0.0-4.3) 12/09/19 05:08 Basophils % (Manual) 0 % (0.0-1.8) 12/09/19 05:08 Metamyelocytes % 0 % 12/09/19 05:08 Myelocytes % 0 % 12/09/19 05:08 Promyelocytes % 0 % 12/09/19 05:08 Blast Cells % 0 % 12/09/19 05:08 Nucleated RBC % Not Reportable 12/09/19 05:08 Seg Neutrophils # 13.1 K/mm3 (1.8-7.7) H 12/07/19 05:08 Seg Neutrophils # Man 5.4 K/mm3 (1.8-7.7) 12/09/19 05:08 Band Neutrophils # 0.0 K/mm3 12/09/19 05:08 Lymphocytes # (Manual) 1.5 K/mm3 (1.2-5.4) 12/09/19 05:08 Abs React Lymphs (Man) 0.0 K/mm3 12/09/19 05:08 Monocytes # (Manual) 0.7 K/mm3 (0.0-0.8) 12/09/19 05:08 Eosinophils # (Manual) 0.0 K/mm3 (0.0-0.4) 12/09/19 05:08 Basophils # (Manual) 0.0 K/mm3 (0.0-0.1) 12/09/19 05:08 Metamyelocytes # 0.0 K/mm3 12/09/19 05:08 Myelocytes # 0.0 K/mm3 12/09/19 05:08 Promyelocytes # 0.0 K/mm3 12/09/19 05:08 Blast Cells # 0.0 K/mm3 12/09/19 05:08 WBC Morphology Not Reportable 12/09/19 05:08 Hypersegmented Neuts Not Reportable 12/09/19 05:08 Hyposegmented Neuts Not Reportable 12/09/19 05:08 Hypogranular Neuts Not Reportable 12/09/19 05:08 Smudge Cells Not Reportable 12/09/19 05:08 Toxic Granulation Not Reportable 12/09/19 05:08 Toxic Vacuolation Not Reportable 12/09/19 05:08 Dohle Bodies Not Reportable 12/09/19 05:08 Pelger-Huet Anomaly Not Reportable 12/09/19 05:08 Aline Rods Not Reportable 12/09/19 05:08 Platelet Estimate Consistent w auto 12/09/19 05:08 Clumped Platelets Not Reportable 12/09/19 05:08 Plt Clumps, EDTA Not Reportable 12/09/19 05:08 Large Platelets Few 12/09/19 05:08 Giant Platelets Not Reportable 12/09/19 05:08 Platelet Satelliting Not Reportable 12/09/19 05:08 Plt Morphology Comment Not Reportable 12/09/19 05:08 RBC Morphology Normal 12/09/19 05:08 Dimorphic RBCs Not Reportable 12/09/19 05:08 Polychromasia Not Reportable 12/09/19 05:08 Hypochromasia Not Reportable 12/09/19 05:08 Poikilocytosis Not Reportable 12/09/19 05:08 Anisocytosis Not Reportable 12/09/19 05:08 Microcytosis Not Reportable 12/09/19 05:08 Macrocytosis Not Reportable 12/09/19 05:08 Spherocytes Not Reportable 12/09/19 05:08 Pappenheimer Bodies Not Reportable 12/09/19 05:08 Sickle Cells Not Reportable 12/09/19 05:08 Target Cells Not Reportable 12/09/19 05:08 Tear Drop Cells Not Reportable 12/09/19 05:08 Ovalocytes Not Reportable 12/09/19 05:08 Helmet Cells Not Reportable 12/09/19 05:08 [place] Bodies Not Reportable 12/09/19 05:08 [place] Rings Not Reportable 12/09/19 05:08 Richard Cells Not Reportable 12/09/19 05:08 Bite Cells Not Reportable 12/09/19 05:08 Crenated Cell Not Reportable 12/09/19 05:08 Elliptocytes Not Reportable 12/09/19 05:08 Acanthocytes (Spur) Not Reportable 12/09/19 05:08 Rouleaux Not Reportable 12/09/19 05:08 Hemoglobin C Crystals Not Reportable 12/09/19 05:08 Schistocytes Not Reportable 12/09/19 05:08 Malaria parasites Not Reportable 12/09/19 05:08 Jeffy Bodies Not Reportable 12/09/19 05:08 Hem Pathologist Commnt No 12/09/19 05:08 PT 13.0 Sec. (12.2-14.9) 12/06/19 04:53 INR 1.00 (0.87-1.13) 12/06/19 04:53 D-Dimer 481.48 ng/mlDDU (0-234) H 12/09/19 05:08 Sodium 136 mmol/L (137-145) L 12/12/19 04:41 Potassium 4.2 mmol/L (3.6-5.0) 12/12/19 04:41 Chloride 101.2 mmol/L (98-107) 12/12/19 04:41 Carbon Dioxide 25 mmol/L (22-30) 12/12/19 04:41 Anion Gap 14 mmol/L 12/12/19 04:41 BUN 15 mg/dL (9-20) 12/12/19 04:41 Creatinine 0.6 mg/dL (0.8-1.5) L 12/12/19 04:41 Estimated GFR > 60 ml/min 12/12/19 04:41 BUN/Creatinine Ratio 25 % 12/12/19 04:41 Glucose 121 mg/dL (75-100) H 12/12/19 04:41 Lactic Acid 1.10 mmol/L (0.7-2.0) 12/06/19 01:18 Calcium 10.1 mg/dL (8.4-10.2) 12/12/19 04:41 Ferritin 999.3 ng/mL (13.0-400.0) H 12/09/19 05:08 Total Bilirubin 0.40 mg/dL (0.1-1.2) 12/12/19 04:41 AST 31 units/L (5-40) 12/12/19 04:41 ALT 169 units/L (7-56) H 12/12/19 04:41 Alkaline Phosphatase 82 units/L (35-129) 12/12/19 04:41 Lactate Dehydrogenase 360 units/L (91-180) H 12/09/19 05:08 Total Creatine Kinase 116 units/L (55-170) 12/05/19 20:31 CK-MB (CK-2) < 1.0 ng/mL (0.0-4.0) 12/05/19 20:31 CK-MB (CK-2) Rel Index 0.8 (0-4) 12/05/19 20:31 Troponin T < 0.010 ng/mL (0.00-0.029) 12/05/19 20:31 C-Reactive Protein 2.60 mg/dL (0.00-1.30) H 12/09/19 05:08 Total Protein 6.4 g/dL (6.3-8.2) 12/12/19 04:41 Albumin 3.3 g/dL (3.9-5) L 12/12/19 04:41 Albumin/Globulin Ratio 1.1 % 12/12/19 04:41 Procalcitonin 0.22 ng/mL (<0.15) 12/05/19 20:31 Urine Color Yellow (Yellow) 12/05/19 20:58 Urine Turbidity Clear (Clear) 12/05/19 20:58 Urine pH 8.0 (5.0-7.0) H 12/05/19 20:58 Ur Specific [place] 1.014 (1.003-1.030) 12/05/19 20:58 Urine Protein 30 mg/dl mg/dL (Negative) 12/05/19 20:58 Urine Glucose (UA) Neg mg/dL (Negative) 12/05/19 20:58 Urine Ketones Neg mg/dL (Negative) 12/05/19 20:58 Urine Blood Neg (Negative) 12/05/19 20:58 Urine Nitrite Neg (Negative) 12/05/19 20:58 Urine Bilirubin Neg (Negative) 12/05/19 20:58 Urine Urobilinogen < 2.0 mg/dL (<2.0) 12/05/19 20:58 Ur Leukocyte Esterase Neg (Negative) 12/05/19 20:58 Urine WBC (Auto) 1.0 /HPF (0.0-6.0) 12/05/19 20:58 Urine RBC (Auto) 2.0 /HPF (0.0-6.0) 12/05/19 20:58 Urine Mucus Few /HPF 12/05/19 20:58 Coronavirus (PCR) Positive (Negative) A 12/05/19 Unknown Blood Type O POSITIVE 12/11/19 13:19 Antibody Screen Negative 12/11/19 13:19 Hill/IV: Voiding Method Toilet IV Catheter Type [Left INT / Saline Lock Antecubital] Active Medications - Current Medications Current Medications: Generic Name Dose Route Start Last Admin Trade Name Freq PRN Reason Stop Dose Admin Acetaminophen 650 mg 12/05/19 23:08 Tylenol PO Q4H PRN Pain MILD(1-3)/Fever >100.5/WILSON Dexamethasone 6 mg 12/06/19 10:00 12/13/19 10:16 Decadron PO 12/15/19 10:01 6 mg DAILY IVÁN Administration Heparin Sodium (Porcine) 5,000 unit 12/06/19 06:00 12/13/19 06:09 Heparin SUB-Q 5,000 unit Q8HR IVÁN Administration Magnesium Hydroxide 30 ml 12/05/19 23:08 Milk Of Magnesia PO Q4H PRN Constipation Ondansetron HCl 4 mg 12/05/19 23:08 Zofran IV Q8H PRN Nausea And Vomiting Sodium Chloride 10 ml 12/06/19 10:00 12/13/19 10:16 Sodium Chloride Flush Syringe 10 Ml IV 10 ml BID IVÁN Administration Sodium Chloride 10 ml 12/05/19 23:08 Sodium Chloride Flush Syringe 10 Ml IV PRN PRN LINE FLUSH Nutrition/Malnutrition Assess - Dietary Evaluation Nutrition/Malnutrition Findings: Nutrition Notes Start: 12/12/19 15:16 Freq: Status: Active Protocol: Document 12/12/19 15:17 LM (Rec: 12/12/19 15:17 LM [id number]) Nutrition Notes Need for Assessment generated from: LOS Initial or Follow up Brief Note Subjective/Other Information Screen for LOS. Pt with 100% intakes in chart.
--- NOTE | 2019-12-13 14:11 | Discharge Summary ---
Providers - Providers Date of Admission: 12/05/19 21:36 Attending physician: PATRICIA EAST 12/05/19 23:08 Consult to Physician [CONS] Routine Comment: Consulting Provider: KIMI VAZQUEZ Physician Instructions: Reason For Exam: PNEUMONIA, R/O COVID 19 12/07/19 14:29 Consult to Physician [CONS] Routine Comment: Consulting Provider: ROSE ARANGO Physician Instructions: Reason For Exam: Acute hypoxic respiratory failure/COVID-19 pneumon [facility] Condition: Good Hospital course: 44 year old male with no significant past medical history presenting to the emergency room complaining of shortness of breath which has been ongoing for about a week, cough, generalized body aches and pain, and low grade fevers. He was admitted for bilateral PNA and found to be CVOID (+). He complained of SOB and was hypoxic with minimal effort during hospital stay however this has improved drastically. He was treated with Remdesivir and Actemra. He will be discharged on dexamethasone 6 mg daily till 12/15 and home oxygenation at 3L. Please follow up with your primary care provider. Disposition: DC-01 TO HOME OR SELFCARE - Discharge Diagnoses (1) Pneumonia due to COVID-19 virus Status: Acute (2) Hypoxia Status: Acute (3) DVT prophylaxis Status: Acute (4) Full code status Status: Acute Core Measure Documentation - Palliative Care Palliative Care/ Comfort Measures: Not Applicable - Core Measures Any of the following diagnoses?: none Exam - Constitutional Vitals: Temp Pulse Resp BP Pulse Ox 98.4 F 62 20 114/67 94 12/13/19 11:58 12/13/19 11:58 12/13/19 11:58 12/13/19 11:58 12/13/19 11:58 General appearance: Present: no acute distress - EENT Eyes: Present: PERRL, EOM intact ENT: hearing intact - Neck Neck: Present: supple, normal ROM - Respiratory Respiratory effort: normal - Cardiovascular Rhythm: regular - Extremities Extremities: no ischemia, pulses intact, pulses symmetrical, No edema - Abdominal General gastrointestinal: Present: non-tender - Integumentary Integumentary: Present: clear, warm, dry - Musculoskeletal Musculoskeletal: strength equal bilaterally - Psychiatric Psychiatric: appropriate mood/affect, cooperative - Neurologic Neurologic: CNII-XII intact, no focal deficits, moves all extremities, gait normal - Allied Health Allied health notes reviewed: nursing Plan Activity: no restrictions Diet: regular Additional Instructions: COVID precautions, self isolation for 14 days, mask while around others and maintain social distancing. Mask use when going out in public. Sleep on your abdomen as needed for better oxygenation. Clean shared and frequently touched surfaces frequently. Please provide patient with Covid protocol and precautions. Frequently wash your hands and avoid touching eye/mouth/nose with dirty hands. Follow up with: LISBETH BLAIR MD [Primary Care Provider] - 3-5 Days Prescriptions: Dexamethasone [Decadron] 6 mg PO QDAY 2 Days #2 tablet Other Discharge Orders: Oxygen (Amb) Location: None Selected
--- NOTE | 2019-12-13 15:14 | Progress Note ---
Assessment and Plan Cultures: Blood culture no growth today Assessment: 44-year-old male with no significant past medical history admitted on 12/05/2019 due to a week history of cough and shortness of breath associated with generalized malaise, body aches and fever: #Severe sepsis: likely due to bilateral pneumonia. #Severe COVID pneumonia: Patient presented with a week of symptoms, chest x-ray with diffuse bilateral infiltrates. Admission O2 sats 93% on room air. Inflammatory markers are elevated - D-dimer 295 1 up to 481. Ferritin 887. LDH 408. CRP 23. 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 #Acute hypoxemic respiratory failure: Currently on 2 L nasal cannula #Elevated LFTs: from COVID Recommendations: Continue dexamethasone 6 mg IV/PO daily for 10 days Completed Remdesivir 200 mg IV q day x 1 day followed by 100 mg IV q day x 4 days S/p Tocilizumab 8 mg/kg IV x 1 on 12/07/2019 Obtain daily inflammatory markers - ferritin, Ddimer, CRP, LDH Continue prophylactic anticoagulation Follow-up IL-6 level Okay for discharge from infectious disease perspective. We will follow Debra Lawrence MD [facility] M: [phone] O: [phone] F: [phone] Subjective Date of service: 12/13/19 Interval history: Afebrile, currently on 2 L nasal cannula. Objective - Exam Narrative Exam: Physical exam deferred due to PPE conservation strategy. Please refer to primary team's note. - Constitutional Vitals: Vital Signs Temp Pulse Resp BP Pulse Ox 98.4 F 62 20 114/67 94 12/13/19 11:58 12/13/19 11:58 12/13/19 11:58 12/13/19 11:58 12/13/19 11:58 Temperature -Last 24 Hours Temperature 98.4 F Temperature 97.5 F Temperature 98.0 F Temperature 98.8 F - Labs CBC & Chem 7: 12/12/19 04:41 12/12/19 04:41
== END 2019-12-13 19:16 | disposition home or self-care (01) | DRG 871 ==
LOC: ED 17:13 → 3A 21:36
PROVIDERS: ADMIT Internal Medicine Geriatric Medicine; ATTEND Hospitalist
DX: A41.89 Other specified sepsis (principal); U07.1 COVID-19; J96.01 Acute respiratory failure with hypoxia; J12.89 Other viral pneumonia; E87.0 Hyperosmolality and hypernatremia; R73.9 Hyperglycemia, unspecified; D72.829 Elevated white blood cell count, unspecified; R65.20 Severe sepsis without septic shock
CPT/HCPCS: 36415; 71045; 80048; 80053; 81001; 82140; 82550; 82553; 82728; 82947; 83615; 84145; 84484; 85007; 85025; 85027; 85379; 85610; 86140; 86850; 86900; 86901; 87040; 93005; 94760; G0378; J0456; J0696; J1100; J1644; J7030; J7050; J8540; U0003-CS